=== PATIENT | male | born 1950 | race Caucasian/White ===

== ENCOUNTER 2017-12-26 11:14 | Day surgery (SDC) | payer MEDICARE ==
[2017-12-26] MEDS ORDERED: Propofol* 10 MG/ML 20 ML BTL IV PUSH ONE ×2 (11:47→16:06)
[2017-12-26] MEDS ORDERED: Ondansetron INJ* 2 MG/ML VIAL ONE (11:47)
[2017-12-26] MEDS ORDERED: Mivacurium Chloride* 20 MG/10 ML VIAL IV ONE (11:47)
[2017-12-26] MEDS ORDERED: Dexamethasone IV* 4 MG/ML 1 ML (4 MG) ONE (11:47)
[2017-12-26] MEDS ORDERED: Ketorolac INJ* 30 MG/ML 1 ML VIAL ONE (11:47)
[2017-12-26] MEDS ORDERED: Midazolam* 1 MG/ML 5 ML VIAL (5 MG) ONE (11:47)
[2017-12-26] MEDS ORDERED: Lidocaine 2% PF * 5 ML VIAL ONE ×2 (11:47→12:38)
[2017-12-26] MEDS ORDERED: fentaNYL* 50 MCG/ML 2 ML VIAL (100 MCG VIAL) ONE ×2 (11:47→16:01)
[2017-12-26] MEDS ORDERED: Famotidine IV* 10 MG/ML 2 ML (20 mg) ONE (11:49)
[2017-12-26] MEDS ORDERED: Metoclopramide TAB* 10 MG ONE (11:49)
[2017-12-26] MEDS ORDERED: ceFAZolin 2 GM in 100 MLS NS (*) BAG IVPB ONE (11:50)
[2017-12-26] MEDS ORDERED: Bupivacaine 0.25% SDV* 30 ML ONE (12:34)
[2017-12-26] MEDS ORDERED: ROPIVACAINE 5 MG/ML 30 ML BTL (0.5%) ONE (12:38)
[2017-12-26] MEDS ORDERED: Labetalol IV* 5 MG/ML 20 ML VIAL ONE (13:46)
[2017-12-26] MEDS ORDERED: fentaNYL* 50 MCG/ML 2 ML VIAL (100 MCG VIAL) IV PRN (14:38)
[2017-12-26] MEDS ORDERED: oxyCODONE/Acetamin 5/325 MG* TAB PO PRN (14:38)
[2017-12-26] MEDS ORDERED: Ondansetron INJ* 2 MG/ML VIAL IV PRN (14:38)
[2017-12-26] MEDS ORDERED: Naloxone* 0.4 MG/ML 1 ML VIAL IV PRN (14:38)
[2017-12-26] MEDS ORDERED: Levalbuterol 0.63MG/3ML NEB* UNIT OF USE INH PRN (16:36)
[2017-12-26 18:12] VITALS: BP 130/85
--- NOTE | 2017-12-27 18:33 | OP ---
OPERATIVE REPORT: DATE OF OPERATION: 12/26/17. DATE OF : 48. SURGEON: Jesusita Chase MD. BOWLING ALLEY MECHANIC: MEEK Gill Assistance was needed for the entirety of the case to help with positioning, retraction, and was utilized throughout all portions of the case. ANESTHESIOLOGIST: Dr. Dias. ANESTHESIA: General with interscalene block. PRE-OP DIAGNOSES: Acute left shoulder massive tear. POST-OP DIAGNOSES: Left shoulder massive tear of the supra and infraspinatus tendon, bicipital tendonitis and tendinopathy, mild chondrosis and synovitis. OPERATIVE PROCEDURE: 1. Left shoulder arthroscopy with extensive glenohumeral debridement including chondroplasty. 2. Arthroscopic biceps tenodesis. 3. Subacromial decompression with acromioplasty. 4. Rotator cuff repair of supra and infraspinatus tendon for massive tear in a double-row fashion. INDICATIONS: Pedro Cota is a 67-year-old man, who fell off the step ladder on 11/10/17. He had immediate pain and inability to lift his arm up. He underwent x- ray and MRI and notes improvement in his pain, but he is working on range of motion. He has had persistent pain and although his range of motion is improved he does have significant restretch. Risks and benefits of the surgery were discussed at length and include but not limited to bleeding, infection, damage to nerves, vessel, surrounding structures, wound nonhealing, persistent pain, need for further surgery, scarring, stiffness, incomplete relief of symptoms, risk of anesthesia. COMPLICATIONS: None. ESTIMATED BLOOD LOSS: Minimal. IMPLANTS USED: Three 4.75 Healicoils, 2 Multifixes and 1 Q-Fix anchor. DESCRIPTION OF PROCEDURE: The patient was greeted in the preoperative area by the attending surgeon. Correct extremity was marked. Consent was confirmed. He then underwent interscalene block by the anesthesiologist in the preoperative area. He was then brought back to the operating suite and he was placed in the supine position on the operating room table. He underwent general anesthesia and endotracheal intubation, after which he was placed in the right lateral decubitus position. All bony prominences were padded. He was secured with a pegboard. The right shoulder was draped unsterile with 10 pounds of traction. Next, the left shoulder was prepped and draped in the usual sterile fashion beginning with chlorhexidine soap, scrub, and alcohol wipe , and a final prep of ChloraPrep. After appropriate surgical pause indicating side, site, procedure, and administration of antibiotics, the posterolateral portal was made sharply with 11 blade. The scope was introduced into the joint. The joint was examined. There was significant synovitis at the undersurface of the rotator cuff. The biceps had evidence of tearing, superior labrum tearing as well as biceps tendon itself had a unstable fraying and tearing. The subscap had a small area of less than 5% tearing. The inferior recess was intact but significant synovitis was present. There were grade 1 to 2 changes of the chondral surface in the glenohumeral joint. An anterior portal was made in an outside-in fashion. The shaver was used to debride back the glenohumeral joint, the anterior and posterior labrum. There was evidence of a full-thickness massive tear of the supra and infraspinatus tendon. There was exposed abundant synovitis and bursitis in the subacromial space. The shaver was used to debride back the anterior, posterior, superior labrum, as well as do a chondroplasty. After this was completed, attention was directed to the subacromial space. The scope was placed in the subacromial space. The abundant bursa that was present was debrided back using a shaver. The rotator cuff had torn and split down between the infra and supraspinatus tendon. The split was identified. The edges of the cuff were scarred to the subdeltoid bursa, which was carefully released. The cuff was allowed to mobilize. Attention was directed to the acromion. The left undersurface was then skeletonized using electrocautery device. The undersurface of the acromion demonstrated a moderate-sized sharp spur anterolaterally which was debrided back using a 4.0 oval bur. Once the acromioplasty was completed, attention was directed to the biceps. The biceps was identified with large massive tear. The bicipital groove was then identified and through a separate stab incision the Q-Fix anchor was then placed with excellent purchase. Sutures were then passed through the biceps tendon at the level of the bicipital groove in an interrupted and looped fashion to allow for a locking stitch. Sutures were then tied down using arthroscopic knot tying. The biceps was then tenotomized proximal to that and the stump was debrided back. Attention was directed to the rotator cuff. The greater tuberosity was then prepared in the usual fashion with electrocautery device, the rasp and then the chaparrita to do some gentle decortication. The rotator cuff was then mobilized first and [id number] stitches between supra and infraspinatus tendon were then done in a simple fashion. These were tied down. This helped to mobilize the tendon, so that it was more closely approximated to the tuberosity. Three anchors were placed along the medial row anterior, middle and posterior. These were then passed through the tendon in a horizontal mattress and simple configuration to help restore. Once the sutures were passed, these were then tied down using arthroscopic knot tying technique and the sutures were then passed through a Multifix. The first six strands were passed through an anchor and placed anteriorly in the lateral row and the remaining six strands were passed and placed in the posterolateral based anchor. The final images were obtained. The rotator cuff was found to be approximated quite well. The shoulder was taken through range of motion. Final images were obtained. All fluid and debris were removed from the shoulder. The wounds were copiously irrigated with sterile saline. The portals were closed with 3-0 nylon. Sterile dressings were applied. A Cryo/Cuff as well as an UltraSling were applied. He was then awoken from anesthesia and transferred to the PACU in stable condition. POSTOPERATIVE PLAN: He will be nonweightbearing. He will be in the sling for approximately six weeks. He will be discharged on pain medication. DVT prophylaxis considered but deferred due to no previous personal or family history. I will see the patient back in 10 to 14 days. [id number]/[facility] #: [id number] ARVIN
== END 2017-12-26 16:12 | disposition home or self-care (01) ==
LOC: OREAST 11:14
PROVIDERS: ATTEND Orthopaedic Surgery
DX: S46.012A Strain of muscle(s) and tendon(s) of the rotator cuff of left shoulder, initial encounter (principal); M75.22 Bicipital tendinitis, left shoulder; M65.812 Other synovitis and tenosynovitis, left shoulder; G89.18 Other acute postprocedural pain; W11.XXXA Fall on and from ladder, initial encounter; Y92.79 Other farm location as the place of occurrence of the external cause; M10.9 Gout, unspecified; M54.5 Low back pain; I10 Essential (primary) hypertension; M19.90 Unspecified osteoarthritis, unspecified site; E78.5 Hyperlipidemia, unspecified
CPT/HCPCS: A9270-GY; C1713; C1776; J1100; J1885; J2250; J2405; J2704; J2795; J3010

== ENCOUNTER 2018-03-27 08:41 | Emergency (ER) | payer MEDICARE, BC ==
[2018-03-27 08:59] VITALS: BP 149/89
--- NOTE | 2018-03-27 09:16 | UC ---
UC General HPI - HPI Summary HPI Summary: 67 yo gentleman c/o increased cough x approx 10 days. + yellow-green productive thick mucus. Without shilo hemoptysis reported. Low grade subj fever. No rash. Seen by pcp one week ago, advised viral uri. But sx have worsened since then. + sinus and ear congestion. Hx bronchitis and pneumonia in the past, most recently > 1 yr ago. Sign recent pmh - left shoulder sx 2/2 tear 12/26/17, no new issues reported. - History of Current Complaint Chief Complaint: UCGeneralIllness Stated Complaint: COUGH, CONGESTION Time Seen by Provider: 03/27/18 09:13 Hx Obtained From: Patient Onset/Duration: Lasting Days Pain Intensity: 8 - Allergy/Home Medications Allergies/Adverse Reactions: Allergies Allergy/AdvReac Type Severity Reaction Status Date / Time No Known Allergies Allergy Verified 03/27/18 08:59 Home Medications: Home Medications diPHENhydraMINE PO* [Benadryl PO 25 MG TAB*] 25 mg PO Q6H PRN 03/27/18 [History Confirmed 03/27/18] guaiFENesin [Mucinex] 600 mg PO BID 03/27/18 [History Confirmed 03/27/18] PMH/Surg Hx/FS Hx/Imm Hx Previously Healthy: Yes - see hpi - Surgical History Surgical History: Yes Surgery Procedure, Year, and Place: 09/09/2016 Sciatic nerve back surgery at [facility]. 1978 RT LOWER LEG PUT BACK IN PLACE BUT NO METAL. left should rotator cuff - Social History Alcohol Use: Rare Alcohol Amount: 3-4 DRINKS/YR Substance Use Type: None Smoking Status (MU): Never Smoked Tobacco Have You Smoked in the Last Year: No Household Exposure Type: Cigarettes Review of Systems Constitutional: Fever, Fatigue Skin: Negative Eyes: Other - see hpi ENT: Nasal Discharge, Sinus Congestion Respiratory: Cough Cardiovascular: Negative Gastrointestinal: Negative Genitourinary: Negative Motor: Negative Neurovascular: Negative Musculoskeletal: Negative - no new edema or leg pain Neurological: Negative Psychological: Negative Is Patient Immunocompromised?: No All Other Systems Reviewed And Are Negative: Yes Physical Exam Triage Information Reviewed: Yes Appearance: Well-Nourished - sitting up, able to ambulate, conversing in full sentances Vital Signs: Initial Vital Signs Temp 97.8 F 03/27/18 08:52 Pulse 78 03/27/18 08:52 Resp 17 03/27/18 08:52 BP 149/89 03/27/18 08:52 Pulse Ox 97 03/27/18 08:52 Vital Signs Reviewed: Yes Eye Exam: Normal ENT Exam: Other - cerumen impaction au ENT: Positive: Pharyngeal erythema - mild post pharyng redness, c/w cough, Nasal congestion, Nasal drainage Neck exam: Normal Neck: Positive: Supple, Nontender Respiratory Exam: Other - BS full bilat. + mild exp wheeze. Scattered rhonch L >R, most notable with cough. No rtx. Cardiovascular Exam: Normal Cardiovascular: Positive: RRR, No Murmur, Pulses Normal, Brisk Capillary Refill Abdominal Exam: Normal Abdomen Description: Positive: Nontender Musculoskeletal Exam: Normal - no new BLE edema, + chronic venous insuff changes , lower ext warm to touch. General good cap refill, non-diaphoretic Neurological Exam: Normal - grossly nonfocal Psychological Exam: Normal - conversing easily and appropriately Skin Exam: Normal - no visible or reported rash. Non-diaphoretic. Course/Dx - Course Course Of Treatment: CXR -reviewed xray, reviewed report with Mr. Friedman. Luma x 1, feels better. Has access to a nebulizer at home. He will ask pcp for script for new nebulizer. Rx short prednisone, d/w pt. Rx alb inh (knows how to use) and albuteron ampules. Rx cough med (pt request). Narc talk reviewed. Questions as posed answered to the best of my ability. Cerumen impaction - ears flushed by RN - Differential Dx - Multi-Symptom Provider Diagnoses: Acute bronchitis, suspect early pneumonia. Cerumen impaction Discharge - Sign-Out/Discharge Documenting (check all that apply): Discharge/Admit/Transfer - Discharge Plan Condition: Stable Disposition: HOME Prescriptions: Albuterol 2.5MG/3ML (0.083%)* [Ventolin 2.5 MG/3 ML NEB.JENS*] 2.5 mg INH Q6H PRN #1 box PRN Reason: Wheezing Albuterol HFA INHALER* [Ventolin HFA Inhaler*] 2 puff INH Q4H PRN #1 mdi PRN Reason: Wheezing Ciprofloxacin HCl [Cipro 500 MG TAB] 500 mg PO BID #20 tab Codeine Phosphate/Guaifenesin [Guaifenesin-Codeine Syrup] 10 ml PO Q4H PRN #280 ml MDD 40ml PRN Reason: Cough predniSONE TAB* [Deltasone TAB*] 10 mg PO DAILY #14 tab Patient Education Materials: Cerumen Impaction (ED), Acute Bronchitis (ED), Hypertension (ED) Referrals: Elda Rene [Primary Care Provider] - Additional Instructions: Follow up with your primary care physician, within the next 1-2 weeks for recheck. Seek medical attention (Emergency Department) for worse or new problems in the meantime. Blood pressure today 149/89. - Billing Disposition and Condition Condition: STABLE Disposition: HOME
[2018-03-27] MEDS ORDERED: Albuterol/Ipratropium NEB.SOL* Albuterol 2.5 MG/Ipratropium 0.5 MG 3 ML INH ONE (09:31)
--- NOTE | 2018-03-27 09:57 | RAD ---
HISTORY: Productive cough COMPARISONS: None VIEWS: 4: Frontal dual-energy and lateral views of the chest. FINDINGS: CARDIOMEDIASTINAL SILHOUETTE: The aorta is tortuous. The cardiomediastinal silhouette is otherwise unremarkable. SRAVANTHI: The sravanthi are normal. PLEURA: The costophrenic angles are sharp. No pleural abnormalities are noted. LUNG PARENCHYMA: The lungs are clear. ABDOMEN: The upper abdomen is clear. There is no subphrenic gas. BONES AND SOFT TISSUES: Degenerative changes are noted along the spine. OTHER: None. IMPRESSION: NO ACTIVE CARDIOPULMONARY DISEASE.
== END 2018-03-27 10:45 | disposition home or self-care (01) ==
LOC: UCCORT 08:41
DX: J20.9 Acute bronchitis, unspecified (principal); H61.23 Impacted cerumen, bilateral
CPT/HCPCS: 71046; 99212; A9270-GY; G0463

== ENCOUNTER 2018-12-16 08:26 | Emergency (ER) | payer MEDICARE ==
--- OUTSIDE RECORDS SUMMARY | 2018-12-16 08:35 | XMS REPORT | Continuity of Care Document ---
:1950 External Reference #:[id number] Author Name Marielle Ortiz Care Team Providers Name Role Phone Digiovanlina Elda, [employer] Primary Care Physician Unavailable Payers Date Identification Numbers Payment Provider Subscriber Policy Number: [id number] [facility] Pedro Friedman Group Number: [id number] [id number] PayID: [id number] [place] [address] Advance Directives Description No Information Available Problems Date Description Provider Status Onset: 05/10/2017 Pain in limb Digiovanna, Elda, Active [employer] Onset: 05/10/2017 Low back pain Digiovanna, Elda, Active [employer] Onset: 05/10/2017 Benign prostatic hypertrophy without Digiovanna, Elda, Active outflow obstruction [employer] Onset: 05/10/2017 Gout Digiovanna, Elda, Active [employer] Onset: 01/21/2015 Pure hypercholesterolemia Active Onset: 01/17/2013 Obesity Drew Osuna DO Active Onset: 10/04/2011 Hyperlipidemia Drew Osuna DO Active Onset: 10/04/2011 Benign essential hypertension Drew Osuna DO Active Onset: 12/06/2017 Full thickness rotator cuff tear Jesusita Chase MD Active Onset: 11/23/2018 Strain of rotator cuff capsule Jesusita Chase MD Active Onset: 01/06/2018 Bicipital tenosynovitis Jesusita Chase MD Active Onset: 01/06/2018 Strain of rotator cuff capsule Jesusita Chase MD Active Family History Date Family Member(s) Observation Comments General Heart Disease General Hypertension General Hypercholesterolemia Father Heart Disease Father Hypertension Mother Hypertension Mother Heart Disease First Sister Heart Disease First Sister Hypercholesterolemia Social History Type Date Description Comments Sex Unknown Marital Status Lives With Spouse Occupation Retired Tobacco Use Start: Unknown Never Smoked Cigarettes Smoking Status Reviewed: 12/08/18 Never Smoked Cigarettes ETOH Use Occasionally consumes alcohol Tobacco Use Start: Unknown Patient has never smoked Recreational Drug Use Denies Drug Use Exercise Type/Frequency Exercises regularly Allergies, Adverse Reactions, Alerts Description No Known Drug Allergies Medications Medication Date Status Form Strength Qnty SIG Indications Ordering Provider Sildenafil 11/11 Active Tablets 100mg 6tabs 1/2-1 by R37 Digiovann Citrate mouth as a, needed Elda, [employer] Lisinopril 10/14 Active Tablets 20mg 90tab 1 by mouth I10 Digiovann s every day a, Elda, [employer] Allopurinol 03/30 Active Tablets 300mg 90tab 1 by mouth M10.9 Digiovann s daily a, Elda, [employer] Colcrys 09/26 Active Tablets 0.6mg 30tab 1 by mouth M79.671 Digiovann s twice a day a, until pain Elda, resolves or SAF[employer]Y [employer]ION if develops diarrhea, then 1 by mouth daily for additional 5 days Ibuprofen 200 00/00 Active Tablets 200mg 400-600mg Unknown /0000 every 6 hours as needed for pain. Ambien 01/10 Hx Tablets 5mg 10tab take one by zenaida s mouth Yaseen, - before bed 06/05 as needed for sleep. Oxycodone-Acetam 12/26 Hx Tablets 5-325mg 40tab 1-2 tabs by Zaneb inophen s mouth every Yaseen, - 4-6 hours 06/05 as needed for pain Budesonide 05/10 Hx Suspension 32mcg/Act 25.29 1 spray J30.9 units each a, - nostril Elda, 06/04 daily, rinse mouth after use Naproxen 02/16 Hx Tablets 500mg 180ta take one M54.5 iovan bs tablet by a, - mouth twice Elda, 10/31 a day for 2 weeks then as needed with food Cyclobenzaprine 02/16 Hx Tablets 10mg 30tab take 1 M54.5 Digiovann HCL s tablet by a, - mouth every Elda, 10/31 8 hours as needed for pain Atorvastatin 10/14 Hx Tablets 10mg 90tab 1 by mouth E78.5 Digiovann Calcium s three times a, - a week Elda, 06/04 Gabapentin 05/06 Hx Capsules 300mg 90cap 1 by mouth M79.606 Digiovann /2016 s every night a, - at bedtime Elda, 06/05 Tamsulosin HCL Hx Capsules 0.4mg 90cap 1 by mouth N40.0 Digiovann /0000 s every day a, - Elda, 06/04 Medications Administered in Office Medication Date Status Form Strength Qnty SIG Indications Ordering Provider Celestone 3 mg Administered Injection Henrik Coronado and 3mg 018 MD Marcos Celestone 3 mg Administered Injection Henrik Coronado and 3mg 018 MD Marcos Immunizations Description No Information Available Vital Signs Date Vital Result Comment 12/08/2018 11:02am Height 66 inches 5'6" Weight 250.00 lb BP Systolic 130 mmHg BP Diastolic 80 mmHg Respiratory Rate 20 /min Pain Level 3 BMI (Body Mass Index) 40.3 kg/m2 11/23/2018 1:59pm Height 66 inches 5'6" Weight 250.00 lb Heart Rate 64 /min Body Temperature 97.4 F Pain Level 5 O2 % BldC Oximetry 97 % BMI (Body Mass Index) 40.3 kg/m2 07/25/2018 7:56am Height 66 inches 5'6" Heart Rate 68 /min BP Systolic Sitting 148 mmHg BP Diastolic Sitting 98 mmHg Respiratory Rate 20 /min Body Temperature 97.6 F Pain Level 1 06/08/2018 9:12am Height 66 inches 5'6" Weight 250.00 lb Heart Rate 60 /min BP Systolic Sitting 124 mmHg BP Diastolic Sitting 84 mmHg Respiratory Rate 18 /min Pain Level 5 BMI (Body Mass Index) 40.3 kg/m2 05/23/2018 9:08am Heart Rate 68 /min BP Systolic 150 mmHg BP Diastolic 100 mmHg Body Temperature 97.6 F 03/17/2018 8:46am Height 66 inches 5'6" Weight 252.00 lb BP Systolic 140 mmHg BP Diastolic 86 mmHg Respiratory Rate 20 /min Pain Level 0 BMI (Body Mass Index) 40.7 kg/m2 02/03/2018 8:46am Height 66 inches 5'6" Weight 252.00 lb Heart Rate 80 /min BP Systolic Sitting 106 mmHg BP Diastolic Sitting 60 mmHg Respiratory Rate 16 /min Pain Level 0 BMI (Body Mass Index) 40.7 kg/m2 01/06/2018 8:00am Height 66 inches 5'6" Weight 252.00 lb BP Systolic 126 mmHg BP Diastolic 74 mmHg Respiratory Rate 18 /min Body Temperature 97.3 F Pain Level 0 BMI (Body Mass Index) 40.7 kg/m2 12/06/2017 9:27am Height 66 inches 5'6" Weight 252.00 lb per pt Heart Rate 74 /min BP Systolic 128 mmHg BP Diastolic 80 mmHg Respiratory Rate 16 /min Body Temperature 97.7 F Pain Level 5 BMI (Body Mass Index) 40.7 kg/m2 12/02/2017 8:42am Height 66 inches 5'6" Weight 252.00 lb Heart Rate 68 /min BP Systolic Sitting 124 mmHg BP Diastolic Sitting 68 mmHg Respiratory Rate 16 /min Pain Level 3 BMI (Body Mass Index) 40.7 kg/m2 11/25/2017 9:48am Height 66 inches 5'6" Weight 252.12 lb Heart Rate 78 /min BP Systolic Sitting 144 mmHg BP Diastolic Sitting 90 mmHg Respiratory Rate 18 /min Pain Level 5 BMI (Body Mass Index) 40.7 kg/m2 Results Test Date Facility Test Result H/L Range Note Basic Metabolic 12/06/2017 [facility] Sodium 136 mmol/L N 133- 145 Panel [address] [place] [address] [phone] Potassium 4.4 mmol/L N 3.5-5.0 Chloride 102 mmol/L N 101-111 Co2 Carbon Dioxide 28 mmol/L N 22-32 Anion Gap 6 mmol/L N 2-11 Glucose 89 mg/dL N 70-100 Blood Urea Nitrogen 17 mg/dL N 6-24 Creatinine 1.06 mg/dL N 0.67-1.17 BUN/Creatinine Ratio 16.0 N 8-20 Calcium 9.2 mg/dL N 8.6-10.3 Egfr Non- 69.5 >60 Egfr 89.4 >60 1 CBC Auto Diff 12/06/2017 [facility] White Blood 9.5 10^3/uL N 3.5-10.[address] [place] [address] [phone] Red Blood Count 5.22 10^6/uL N 4.0-5.4 Hemoglobin 15.9 g/dL N 14.0-18.0 Hematocrit 47 % N 42-52 Mean Corpuscular Volume 90 fL N 80-94 Mean Corpuscular Hemoglobin 31 pg N 27-31 Mean Corpuscular HGB Conc 34 g/dL N 31-36 Red Cell Distribution Width 13 % N 10.5-15 Platelet Count 177 10^3/uL N 150-450 Mean Platelet Volume 10 um3 N 7.4-10.4 Abs Neutrophils 6.6 10^3/uL N 1.5-7.7 Abs Lymphocytes 1.9 10^3/uL N 1.0-4.8 Abs Monocytes 0.8 10^3/uL N 0-0.8 Abs Eosinophils 0.1 10^3/uL N 0-0.6 Abs Basophils 0 10^3/uL N 0-0.2 Abs Nucleated RBC 0 10^3/uL Granulocyte % 69.6 % N 38-83 Lymphocyte % 19.7 % Low 25-47 Monocyte % 8.9 % N 1-9 Eosinophil % 1.4 % N 0-6 Basophil % 0.4 % N 0-2 Nucleated Red Blood Cells % 0 1 Because ethnic data is not always readily available, this report includes an eGFR for both -Americans and non- Americans. The National Kidney Disease Education Program (NKDEP) does not endorse the use of the MDRD equation for patients that are not between the ages of 18 and 70, are , have extremes of body size, muscle mass, or nutritional status, or are non- or non-. According to the National Kidney Foundation, irrespective of diagnosis, the stage of the disease is based on the level of kidney function: Stage Description GFR(mL/min/1.73 m(2)) 1 Kidney damage with normal or decreased GFR 90 2 Kidney damage with mild decrease in GFR 60-89 3 Moderate decrease in GFR 30-59 4 Severe decrease in GFR 15-29 5 Kidney failure <15 (or dialysis) Procedures Date Code Description Status 06/08/2018 Inject/Drain Joint/Bursa Major W/O US Completed 12/26/2017 67925 Arthroscopy Biceps Tenodesis Completed 12/26/2017 26949 Arthroscopy Biceps Tenodesis Completed 12/26/2017 29840 Arthroscopy Shoulder,W/Rotator Cuff Repair Completed 12/26/2017 61410 Arthroscopy Shoulder,W/Rotator Cuff Repair Completed 12/26/2017 32708 Arthroscopy,Shoulder Decompression Of Subacromial Space Completed W/Acromio 12/26/2017 28879 Arthroscopy,Shoulder Decompression Of Subacromial Space Completed W/Acromio 12/26/2017 11367 Arthroscopy Shoulder Debridement Extensive Completed 12/26/2017 65928 Arthroscopy Shoulder Debridement Extensive Completed 11/25/2017 Inject/Drain Joint/Bursa Major W/O US Completed Encounters Type Date Location Provider Dx Diagnosis Office Visit 11/23/2018 Orthopedic Jesusita Chase MD S46.012A Strain of 2:45p [facility] [place]/tend the rotator cuff of left shoulder, init M75.22 Bicipital tendinitis, left shoulder Office Visit 07/25/2018 8:00a Orthopedic Jesusita Chase, S46.012A Strain of Services Of MD [place]/tend the [facility] rotator cuff of left shoulder, init M75.22 Bicipital tendinitis, left shoulder S46.012D Strain of [place]/tend the rotator cuff of left shoulder, subs Office Visit 06/08/2018 Orthopedic Henrik Coronado M17.11 Unilateral primary 9:30a [facility] Bianca Rodríguez MD osteoarthritis, right AT [place] knee S82.101D Unsp fx upper end of r tibia, subs for clos fx w routn heal Office Visit 05/23/2018 9:15a Orthopedic Jesusita Chase, S46.012A Strain of Services Of MD [place]/tend the [facility] 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 rotator cuff of left shoulder, init Office Visit 12/02/2017 8:45a Orthopedic Henrik Coronado M75.122 Complete Services Of Bianca Rodríugez MD rotatr-cuff AT [place] tear/ruptr of left shoulder, not trauma Office Visit 11/25/2017 10:15a Orthopedic Henrik Coronado S43.422A Sprain of left [facility] Of Bianca Rodríguez MD rotator cuff AT [place] capsule, initial encounter W11.xxxA Fall on and from ladder, initial encounter Plan of Treatment Future Appointment(s):08/09/2019 8:00 am - Jesusita Chase MD at [facility] [place]
--- OUTSIDE RECORDS SUMMARY | 2018-12-16 08:36 | XMS REPORT | Continuity of Care Document ---
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 Payers Type Date Identification Numbers Payment Provider Subscriber Policy Number: [id number] [facility] Pedro Friedman PayID: [id number] [place] [address] Advance Directives Description No Information Available Problems Date Description Provider Status Onset: 10/04/2011 Hyperlipidemia Drew Osuna DO Active Onset: 10/04/2011 Benign essential hypertension Drew Osuna DO Active Onset: 05/10/2017 Gout Elda Rene [employer] Active Onset: 05/10/2017 Benign prostatic hypertrophy Elda Rene [employer] Active without outflow obstruction Onset: 05/10/2017 Low back pain Elda Rene [employer] Active Onset: 05/10/2017 Pain in limb Elda Rene [employer] Active Onset: 12/16/2017 Psychosexual dysfunction Elda Rene, [employer] Active Onset: 09/12/2018 Aneurysm of thoracic aorta Elda Rene [employer] Active Family History Date Family Member(s) Problem(s) Comments General [place] son, age 31 Social History Type Date Description Comments Sex Unknown Education Highest level completed, 12th grade Marital Status Lives With Spouse Occupation Retired - [employer] H[employer]ies [employer]. ETOH Use Occasionally consumes alcohol Tobacco Use Start: Unknown Patient has never smoked Smoking Status Reviewed: 11/21/18 Patient has never smoked Exercise exercises regularly, Type/Frequency With Hobbies Allergies, Adverse Reactions, Alerts Description No Known Drug Allergies Medications Medication Date Status Form Strength Qnty SIG Indications Ordering Provider Oswaldo Active Tablets ER 25mg 1 by mouth N40.1 Yomi, 018 24HR every day Jeremie Dewitt Active Capsules 0.6mg 30caps 1 by mouth M79.671 Digiovanna 018 twice a day , until pain Elda, resolves or [employer] WRITER if develops diarrhea, then 1 by mouth daily for additional 5 days M10.9 Sildenafil 05/16/2018 Active Tablets 20mg 30tabs 2 -3 by R37 Digiovanna , Citrate mouth as Elda, [employer] needed 30-60' prior to sexual activity will purchase out of pocket Budesonide 05/10/2017 Active Suspension 32mcg/ 25.29ml 1 spray J30. Digiovanna, Act each 9 Elda, [employer] nostril daily, rinse mouth after use Naproxen 02/16/2017 Active Tablets 500mg 180tabs take one M54. Digiovanna, tablet by 5 Elda, [employer] mouth twice a day for 2 weeks then as needed with food Lisinopril 10/14/2016 Active Tablets 20mg 90tabs 1 by I10 Digiovanna, mouth Elda, [employer]ITER every day Allopurinol 03/30/2016 Active Tablets 300mg 90tabs 1 by M10. Digiovanna , mouth 9 Elda, [employer]ITER daily Sildenafil 11/11/2017 - Hx Tablets 100mg 6tabs 1/2-1 by R37 Digiovanna, Citrate 05/16/2018 mouth as Elda, [employer]ITER needed Cyclobenzaprine 02/16/2017 - Hx Tablets 10mg 30tabs take 1 M54. Digiovanna, HCL 09/12/2018 tablet by 5 Elda, [employer] mouth every 8 hours as needed for pain Prednisone 02/16/2017 - Hx Tablets 20mg 10tabs 2x/day by M54. Digiovanna, 02/21/2017 mouth for 5 Elda, [employer] 5 days Benzonatate 12/15/2016 - Hx Capsules 200mg 30caps 1 by Mica, 05/03/2017 mouth Danya, MD three times a day as needed Amoxicillin/Clavu 12/15/2016 - Hx Tablets 875-12 20tabs 1 by J01. Mica, lanate Potassium 12/25/2016 5mg mouth 90 MD Danya twice a day Atorvastatin 10/14/2016 - Hx Tablets 10mg 90tabs 1 by E78. Digiovanna, Calcium 12/16/2017 mouth 5 Elda, [employer] three times a week Gabapentin 05/06/2016 - Hx Capsules 300mg 90caps 1 by M79. Digiovanna, 11/10/2017 mouth 606 Elda, [employer]ITER every night at bedtime as needed M54.5 Lisinopril 03/30/2016 - Hx Tablets 10mg 90tabs 1 by mouth I10 Enrrique, 10/14/2016 every day Drew DO Allopurinol 01/27/2016 - Hx Tablets 100mg 90tabs 1 by mouth M10.9 Osuna , 03/30/2016 every day Drew, DO Prednisone 12/30/2015 - Hx Tablets 20mg 10tabs 2 by mouth Osuna, 01/04/2016 daily x 5 Drew, days DO Benzonatate 12/30/2015 - Hx Capsules 200mg 30caps 1 by mouth Enrrique, 01/09/2016 three times Drew, a day as DO needed cough Hydrochlorothiazide 12/25/2015 - Hx Tablets 25mg 90tabs take 1 Osuna, 03/30/2016 tablet by Drew, mouth every DO morning Colcrys 09/26/2015 - Hx Tablets 0.6mg 30tabs 1 by mouth M79.6 Digiovanna 05/16/2018 twice a day 71 , until pain Elda, resolves or [employer] WRITER if develops diarrhea, then 1 by mouth daily for additional 5 days M10.9 Diazepam 09/13/2015 - Hx Tablets 5mg 10tabs Take 1 tablet Unknown 11/06/2015 (5 mg total) by mouth every 8 (eight) hours as needed for anxiety Max Daily Amount: 15 mg Milk Of 09/13/2015 - Hx Suspension 1200mg 360units Take 30 mL by Unknown Magnesia 11/06/2015 /15ML mouth daily as needed for constipation Hydrocodone-Rush 09/13/2015 - Hx Tablets 7.5-32 60tabs Take 1-2 Unknown taminophen 11/06/2015 5mg tablets by mouth every 4 (four) hours as needed Max Daily Amount: 8 tablets Cheratussin ac 08/27/2015 - Hx Syrup 100-10 118ml 5 milliliters Osuna, 09/05/2015 mg/5ML by mouth every Drew, night at DO bedtime Azithromycin 08/25/2015 - Hx Tablets 500mg 7tabs 1 po daily Osuna, 09/01/2015 Drew, DO Prednisone 08/12/2015 - Hx Tablets 20mg 10tabs 2 by mouth with Osuna, 08/17/2015 food once a day Drew, DO Tizanidine HCL 08/08/2015 - Hx Tablets 4mg 30tabs 1 by mouth qhs M48 Osuna, 09/05/2015 as needed .06 Drew, muscle spasm DO Gabapentin 07/29/2015 - Hx Capsules 300mg 90caps 1 tabs by mouth M48 Osuna, 09/05/2015 QHS .06 Drew, DO Prednisone 06/26/2015 - Hx Tablets 10mg 21tabs 6 pills daily x 724 Osuna, 07/03/2015 1 day, the 5 .02 Drew, pills daily x 1 DO day, 4 po daily x 1 day, 3 po daily x 1 day, 2 po daily x1, 1 po daily x 1 day Gabapentin 06/26/2015 - Hx Capsules 100mg 60caps 1 by mouth qhs 724 Osuna, 07/29/2015 x 3 days, then .02 Drew, 2 po qhs every DO night at bedtime Prednisone 04/16/2015 - Hx Tablets 10mg 42tabs 6 pills daily x 724 Osuna, 04/28/2015 2 days, the 5 .02 Drew, pills daily x 2 DO days, 4 po daily x 2 days, 3 po daily x 2 days, 2 po daily x2, 1 po until gone Prednisone 03/31/2015 - Hx Tablets 20mg 10tabs 2 by mouth 724 Osuna, 04/05/2015 daily x 5 days .3 Drew, DO Atorvastatin 03/13/2015 - Hx Tablets 10mg 90tabs 1 by mouth Osuna, Calcium 10/14/2016 every day Drew, DO Meloxicam 01/23/2015 - Hx Tablets 15mg 30tabs 1 tab by mouth 724 Osuna, 09/05/2015 daily as needed .3 Drew, pain with food DO M48.06 Viagra 07/26/2014 - Hx Tablets 100mg 6tabs 1/2-1 by R37 Anju, 11/11/2017 mouth as 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 Pravastatin 07/26/2014 - Hx Tablets 80mg 90tabs 1 by mouth Osuna, Sodium 03/13/2015 every Drew, DO night at bedtime Chlorthalidone 04/11/2014 - Hx Tablets 25mg 90tabs 1 by mouth Osuna, 12/25/2015 every day Drew, DO Ibuprofen 09/20/2011 - Hx Tablets 600mg 90tabs take 1 Osuna, 01/23/2015 pill up to Drew, DO three times a day with food as needed for pain Hydrocodone-Aceta - Hx Tablets 5-325mg 1 every 6 Unknown minophen 11/06/2015 hours as needed Tamsulosin HCL - Hx Capsules 0.4mg 90caps 1 by mouth N40.0 Digiovanna, 05/16/2018 every day 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 N40.1 Prednisone - 09/17/2018 Hx Tablets 10mg 1 qid for 3 day, 1 po Unknown tid for 3 day 1 po bid for 3 day, 1 po po for 3 day Immunizations CPT Code Status Date Vaccine Reaction Lot # [id number] Given 12/09/2017 Afluria Or Fluvirin Flu Vac Intramuscular 89619 Given 05/10/2017 Pneumococcal 23 Immunization Adult Or [id number] Immunosuppressed Patient 90201 Given 05/06/2016 Prevnar 13 Pneumococal Conjugate Vaccine [id number] 25629 Given 11/27/2014 Zoster (Zostavax) 06333 Given 08/06/2013 Tdap (Adacel) Ages 7 And Above Only [id number] Refused 11/21/2018 Flu Vaccine NOS Pt says he has not yet gotten a flu shot. VALERIA ERAZO 11/21/18 [id number] Refused 09/12/2018 Flu Vaccine NOS As of 09/12/18--pt hasn't gotten his flu shot yet-says he will get it soon. 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 BMI (Body Mass Index) 40.4 kg/m2 09/12/2018 10:20am Body Temperature 97.9 F tympanic Weight 251.56 lb Heart Rate 84 /min BP Systolic 130 mmHg BP Diastolic 80 mmHg Respiratory Rate 18 /min Height 66 inches 5'6" 05/16/18 ,TUBE PULLER O2 % BldC Oximetry 94 % Room Air BMI (Body Mass Index) 40.6 kg/m2 06/06/2018 8:19am Weight 258.00 lb Heart Rate 66 /min BP Systolic 130 mmHg BP Diastolic 84 mmHg Respiratory Rate 18 /min Height 66 inches 5'6" 05/16/18 SA,TUBE PULLER BMI (Body Mass Index) 41.6 kg/m2 05/16/2018 9:03am Weight 254.00 lb Heart Rate 80 /min BP Systolic 130 mmHg BP Diastolic 80 mmHg Respiratory Rate 18 /min Height 66 inches 5'6" 05/16/18 ,TUBE PULLER BMI (Body Mass Index) 41.0 kg/m2 03/21/2018 10:24am Body Temperature 98.2 F tympanic Weight 256.00 lb Heart Rate 88 /min BP Systolic 140 mmHg BP Diastolic 90 mmHg Respiratory Rate 20 /min Height 66 inches 5'6" O2 % BldC Oximetry 98 % Room Air BMI (Body Mass Index) 41.3 kg/m2 12/16/2017 1:13pm Weight 251.00 lb Heart Rate 80 /min BP Systolic 128 mmHg BP Diastolic 82 mmHg Respiratory Rate 16 /min Height 66 inches 5'6" BMI (Body Mass Index) 40.5 kg/m2 11/21/2017 9:11am Weight 254.00 lb Heart Rate 78 /min BP Systolic 148 mmHg BP Diastolic 92 mmHg Respiratory Rate 16 /min 11/11/2017 11:10am Weight 253.00 lb Heart Rate 76 /min BP Systolic 128 mmHg BP Diastolic 80 mmHg Respiratory Rate 16 /min Height 66 inches 5'6" BMI (Body Mass Index) 40.8 kg/m2 05/10/2017 9:02am Weight 248.00 lb Heart Rate 70 /min BP Systolic 128 mmHg BP Diastolic 74 mmHg Respiratory Rate 18 /min Height 66 inches 5'6" BMI (Body Mass Index) 40.0 kg/m2 04/04/2017 9:33am Body Temperature 97.6 F Weight 252.00 lb Heart Rate 68 /min BP Systolic 122 mmHg BP Diastolic 72 mmHg Respiratory Rate 18 /min Height 66 inches 5'6" BMI (Body Mass Index) 40.7 kg/m2 02/16/2017 8:04am Weight 246.00 lb Heart Rate 60 /min BP Systolic 124 mmHg BP Diastolic 70 mmHg Respiratory Rate 18 /min Height 66 inches 5'6" BMI (Body Mass Index) 39.7 kg/m2 12/15/2016 8:26am Body Temperature 97.0 F Weight 242.00 lb Heart Rate 68 /min BP Systolic 120 mmHg BP Diastolic 70 mmHg Respiratory Rate 18 /min Height 66 inches 5'6" O2 % BldC Oximetry 98 % Ra BMI (Body Mass Index) 39.1 kg/m2 2016 8:37am Weight 244.00 lb Heart Rate 70 /min BP Systolic 120 mmHg BP Diastolic 80 mmHg BP Systolic Lying Down 120 mmHg BP Diastolic Lying Down 84 mmHg BP Systolic Sitting 126 mmHg BP Diastolic Sitting 80 mmHg BP Systolic Standing 120 mmHg BP Diastolic Standing 80 mmHg Respiratory Rate 18 /min 10/14/2016 8:16am Weight 246.00 lb Heart Rate 70 /min BP Systolic 140 mmHg BP Diastolic 80 mmHg Respiratory Rate 18 /min Height 66 inches 5'6" BMI (Body Mass Index) 39.7 kg/m2 05/06/2016 8:29am Weight 245.00 lb Heart Rate 68 /min BP Systolic 120 mmHg BP Diastolic 80 mmHg Respiratory Rate 18 /min Height 66 inches 5'6" BMI (Body Mass Index) 39.5 kg/m2 03/30/2016 8:27am Weight 245.00 lb Heart Rate 76 /min BP Systolic 166 mmHg BP Diastolic 100 mmHg BP Systolic Recheck 152 mmHg BP Diastolic Recheck 106 mmHg Respiratory Rate 20 /min Height 66 inches 5'6" BMI (Body Mass Index) 39.5 kg/m2 01/27/2016 9:53am Weight 250.00 lb Heart Rate 72 /min BP Systolic 138 mmHg No Am Meds Yet BP Diastolic 84 mmHg No Am Meds Yet BP Systolic Recheck 148 mmHg BP Diastolic Recheck 94 mmHg Respiratory Rate 18 /min Height 66 inches 5'6" BMI (Body Mass Index) 40.3 kg/m2 12/30/2015 9:25am Body Temperature 97.4 F Weight 250.00 lb Heart Rate 68 /min BP Systolic 136 mmHg BP Diastolic 76 mmHg Respiratory Rate 18 /min Height 66 inches 5'6" O2 % BldC Oximetry 97 % BMI (Body Mass Index) 40.3 kg/m2 11/13/2015 2:44pm Weight 240.00 lb Heart Rate 94 /min BP Systolic 131 mmHg BP Diastolic 87 mmHg Height 66 inches BMI (Body Mass Index) 38.7 kg/m2 11/06/2015 8:38am Weight 250.00 lb Heart Rate 74 /min BP Systolic 136 mmHg BP Diastolic 86 mmHg Respiratory Rate 18 /min Height 66 inches 5'6" BMI (Body Mass Index) 40.3 kg/m2 10/02/2015 9:52am Weight 245.00 lb Heart Rate 98 /min BP Systolic 133 mmHg BP Diastolic 89 mmHg Height 66 inches BMI (Body Mass Index) 39.5 kg/m2 09/26/2015 10:45am Body Temperature 98.1 F Weight 246.00 lb PRPT Heart Rate 72 /min BP Systolic 140 mmHg BP Diastolic 70 mmHg Respiratory Rate 18 /min Height 65.5 inches 5'5.50" (07/2015) BMI (Body Mass Index) 40.3 kg/m2 09/13/2015 7:33am Body Temperature 97.4 F Heart Rate 71 /min BP Systolic 123 mmHg BP Diastolic 81 mmHg Respiratory Rate 18 /min O2 % BldC Oximetry 96 % 09/09/2015 7:50am Weight 244.00 lb Height 66.50 inches BMI (Body Mass Index) 38.8 kg/m2 09/05/2015 1:05pm Weight 248.00 lb Heart Rate 92 /min BP Systolic 160 mmHg BP Diastolic 106 mmHg BP Systolic Recheck 150 mmHg BP Diastolic Recheck 90 mmHg Respiratory Rate 21 /min Height 65.5 inches 5'5.50" (07/2015) BMI (Body Mass Index) 40.6 kg/m2 08/25/2015 3:36pm Body Temperature 98.3 F Weight 242.00 lb Heart Rate 94 /min BP Systolic 148 mmHg BP Diastolic 88 mmHg Respiratory Rate 20 /min Height 65.5 inches 5'5.50" (07/2015) O2 % BldC Oximetry 95 % BMI (Body Mass Index) 39.7 kg/m2 08/08/2015 9:09am Weight 246.00 lb Heart Rate 86 /min BP Systolic 168 mmHg BP Diastolic 90 mmHg BP Systolic Recheck 142 mmHg BP Diastolic Recheck 92 mmHg Respiratory Rate 21 /min Height 65.5 inches 5'5.50" (07/2015) BMI (Body Mass Index) 40.3 kg/m2 07/29/2015 9:19am Weight 249.00 lb Heart Rate 70 /min BP Systolic 132 mmHg BP Diastolic 76 mmHg Respiratory Rate 18 /min Height 66 inches 5'6" BMI (Body Mass Index) 40.2 kg/m2 06/26/2015 9:27am Weight 248.00 lb Heart Rate 70 /min BP Systolic 136 mmHg BP Diastolic 74 mmHg Respiratory Rate 18 /min Height 66 inches 5'6" BMI (Body Mass Index) 40.0 kg/m2 06/12/2015 9:44am Weight 250.00 lb Heart Rate 70 /min BP Systolic 148 mmHg BP Diastolic 84 mmHg Respiratory Rate 18 /min Height 66 inches 5'6" O2 % BldC Oximetry 96 % BMI (Body Mass Index) 40.3 kg/m2 04/16/2015 9:47am Weight 250.00 lb Heart Rate 68 /min BP Systolic 148 mmHg BP Diastolic 74 mmHg Respiratory Rate 18 /min Height 66 inches 5'6" BMI (Body Mass Index) 40.3 kg/m2 03/31/2015 9:44am Weight 257.00 lb Heart Rate 70 /min BP Systolic 138 mmHg BP Diastolic 72 mmHg Respiratory Rate 18 /min Height 66 inches 5'6" BMI (Body Mass Index) 41.5 kg/m2 01/23/2015 8:09am Weight 252.00 lb Heart Rate 72 /min BP Systolic 158 mmHg BP Diastolic 90 mmHg BP Systolic Recheck 144 mmHg BP Diastolic Recheck 88 mmHg Respiratory Rate 18 /min 09/05/2014 1:02pm Body Temperature 96.9 F Weight 247.00 lb Heart Rate 72 /min BP Systolic 132 mmHg BP Diastolic 80 mmHg Respiratory Rate 18 /min O2 % BldC Oximetry 95 % Ra 08/20/2014 10:02am Body Temperature 97.8 F Weight 248.00 lb Heart Rate 88 /min BP Systolic 148 mmHg BP Diastolic 82 mmHg Respiratory Rate 18 /min Height 65.5 inches 5'5.50" O2 % BldC Oximetry 97 % 07/26/2014 8:01am BP Systolic 126 mmHg BP Diastolic 84 mmHg 07/26/2014 8:01am Weight 245.00 lb Heart Rate 70 /min BP Systolic 144 mmHg BP Diastolic 88 mmHg Respiratory Rate 18 /min Height 65.5 inches 5'5.50" 04/29/2014 10:06am BP Systolic 130 mmHg BP Diastolic 90 mmHg 04/29/2014 10:06am Body Temperature 97.5 F Weight 246.12 lb Heart Rate 78 /min BP Systolic 142 mmHg BP Diastolic 106 mmHg Respiratory Rate 20 /min Height 65.5 inches 5'5.50" O2 % BldC Oximetry 95 % 04/11/2014 8:56am BP Systolic 144 mmHg BP Diastolic 98 mmHg 04/11/2014 8:56am Weight 243.00 lb Heart Rate 70 /min BP Systolic 140 mmHg BP Diastolic 90 mmHg Respiratory Rate 18 /min Height 65.5 inches 5'5.50" 08/27/2013 2:51pm Weight 245.00 lb Heart Rate 88 /min BP Systolic 142 mmHg BP Diastolic 88 mmHg Respiratory Rate 19 /min 08/20/2013 9:10am Body Temperature 97.5 F Weight 242.00 lb Heart Rate 86 /min BP Systolic 144 mmHg BP Diastolic 104 mmHg Respiratory Rate 20 /min O2 % BldC Oximetry 95 % 08/06/2013 10:16am Body Temperature 97.7 F Weight 243.00 lb Heart Rate 82 /min BP Systolic 142 mmHg BP Diastolic 82 mmHg Respiratory Rate 18 /min O2 % BldC Oximetry 96 % 07/23/2013 10:34am Body Temperature 96.7 F Weight 244.00 lb Heart Rate 90 /min BP Systolic 150 mmHg off BP med BP Diastolic 108 mmHg off BP med Respiratory Rate 20 /min 01/17/2013 8:21am Body Temperature 96.6 F Weight 239.00 lb Heart Rate 70 /min BP Systolic 146 mmHg BP Diastolic 88 mmHg Respiratory Rate 18 /min 06/14/2012 10:38am Weight 233.19 lb Heart Rate 70 /min BP Systolic 134 mmHg BP Diastolic 82 mmHg Respiratory Rate 19 /min Height 66 inches 5'6" 02/16/2012 11:13am Body Temperature 97.7 F Weight 236.06 lb Heart Rate 73 /min BP Systolic 132 mmHg BP Diastolic 84 mmHg Respiratory Rate 19 /min Height 66.5 inches 5'6.50" O2 % BldC Oximetry 93 % 12/03/2011 8:22am Weight 236.00 lb Heart Rate 74 /min BP Systolic 130 mmHg LEFT Arm 122/80 RIGHT Arm BP Diastolic 80 mmHg LEFT Arm 122/80 RIGHT Arm Respiratory Rate 18 /min Height 66.5 inches 5'6.50" 10/18/2011 8:29am Weight 238.00 lb Up 2# Heart Rate 72 /min BP Systolic 148 mmHg L/LG BP Diastolic 92 mmHg L/LG Respiratory Rate 19 /min Height 66.5 inches 5'6.50" 10/04/2011 9:06am Weight 236.56 lb Heart Rate 78 /min BP Systolic 150 mmHg BP Diastolic 102 mmHg Respiratory Rate 17 /min Height 66.5 inches 5'6.50" 09/20/2011 4:17pm Weight 266.25 lb Heart Rate 80 /min BP Systolic 132 mmHg BP Diastolic 80 mmHg Respiratory Rate 18 /min Height 66.5 inches 5'6.50" 03/22/2011 8:21am Weight 238.00 lb Heart Rate 72 /min BP Systolic 128 mmHg BP Diastolic 82 mmHg Respiratory Rate 18 /min Height 66.5 inches 5'6.50" 12/22/2010 8:49am Weight 230.00 lb Heart Rate 80 /min BP Systolic 140 mmHg BP Diastolic 92 mmHg Respiratory Rate 18 /min 11/10/2010 8:35am Weight 234.00 lb Heart Rate 72 /min BP Systolic 134 mmHg BP Diastolic 90 mmHg Respiratory Rate 20 /min 10/13/2010 9:03am Heart Rate 80 /min BP Systolic 148 mmHg BP Diastolic 90 mmHg Height 67 inches 5'7" Results Test Date Facility Test Result H/L Range Note Lipid Treatment 11/14/2018 [facility] Cholesterol 210 mg/dL High 50-199 Triglycerides 250 mg/dL High 30-200 HDL 37 mg/dL 29-71 1 Chol/ HDL Ratio 5.6 ratio 4.0-6.7 VLDL 50 mg/dL High 2-29 LDL (Calc) 123 mg/dL High 20-99 2 Alt 20 U/L 3-42 Ast 18 U/L 8-42 Basic (BMP) 11/14/2018 [facility] Sodium 139 mmol/L 135-146 3 Potassium 5.0 mmol/L 3.5-5.2 Chloride# 102 mmol/L 97-110 4 Carbon Dioxide 30 mmol/L 24-34 Glucose 86 mg/dL 70-105 BUN 16 mg/dL 6-26 Creatinine 1.0 mg/dL 0.5-1.4 Calcium 9.5 mg/dL 8.5-10.2 Non [facility] Egfr >60 >60 5 [facility] Eg[facility] >60 >60 6 Anion Gap 7 mmol/L 5-15 7 CBC with Auto Diff-fcmg 11/14/2018 [facility] WBC 7.6 K/uL 4.1-11.0 RBC 5.35 M/uL 4.60-6.10 Hemoglobin 16.0 gm/dL 13.5-18.0 Hematocrit 47.9 % 41.0-53.0 MCV 89.7 fL 80.0-97.0 MCH 29.9 pg 27.0-32.0 MCHC 33.4 g/dL 32.0-36.0 RDW 13.0 % 11.5-14.5 PLT Count 176 K/ul 140-400 MPV 10.5 FL 7.1-10.7 Neutrophil 63.5 % 35.0-75.0 Lymphocyte 22.1 % 16.0-52.0 Monocyte 10.1 % High 2.0-10.0 Eosinophil 3.0 % 0.0-5.0 Basophil 1.3 % 0.0-4.0 Abs Neutrophils 4.8 K/uL 2.1-8.0 Abs Lymphocytes 1.7 K/uL 0.8-5.5 Abs Monocytes 0.8 K/uL 0.1-1.0 Abs Eosinophils 0.2 K/uL 0.0-0.5 Abs Basophils 0.1 K/uL 0.0-0.3 Xray 09/12/2018 [facility] - Radiology Cta, Chest, DUE IN EAR[address] [facility] [id number] With Contrast FEBRUARY [phone] Laboratory 05/05/2018 [facility] Hepatitis C NON REACTIVE Non 8, 9 test finding Virus S/CORatio(Sa Reactive Antibody m Uric Acid 5.3 mg/dL 2.6-8.4 Lipid Treatment 05/05/2018 [facility] Cholesterol 188 mg/dL 50-199 Triglycerides 196 mg/dL 30-200 HDL 40 mg/dL 29-71 10 Chol/ HDL Ratio 4.8 ratio 4.0-6.7 VLDL 39 mg/dL High 2-29 LDL (Calc) 109 mg/dL High 20-99 11 Alt 20 U/L 3-42 Ast 16 U/L 8-42 Basic (BMP) 05/05/2018 [facility] Sodium 137 mmol/L 135-146 12 Potassium 4.3 mmol/L 3.5-5.2 Chloride# 104 mmol/L 97-110 13 Carbon Dioxide 23 mmol/L Low 24-34 Glucose 87 mg/dL 70-105 BUN 14 mg/dL 6-26 Creatinine 0.8 mg/dL 0.5-1.4 Calcium 9.0 mg/dL 8.5-10.2 Non [facility] Egfr >60 >60 14 [facility] Egfr >60 >60 15 Anion Gap 10 mmol/L 5-15 16 Lipid 11/04/2017 [facility] Cholesterol 137 mg/dL 50-199 Triglycerides 123 mg/dL 30-200 HDL 29 mg/dL 29-71 17 Chol/ HDL Ratio 4.8 ratio 4.0-6.7 VLDL 25 mg/dL 2-29 LDL (Calc) 84 mg/dL 20-99 18 Basic ([facility]) 11/04/2017 [facility] Sodium 139 mmol/L 135-146 19 Potassium 4.5 mmol/L 3.5-5.2 Chloride# 104 mmol/L 97-110 20 Carbon Dioxide 26 mmol/L 24-34 Glucose 93 mg/dL 70-105 Creatinine 1.1 mg/dL 0.5-1.4 Calcium 9.0 mg/dL 8.5-10.2 Non [facility] Egfr >60 >60 21 [facility] Egfr >60 >60 22 Anion Gap 9 mmol/L 7-16 23 BUN 21 mg/dL 6-26 CBC With Auto Diff 11/04/2017 [facility] WBC 9.4 K/uL 4.1-11.0 RBC 5.24 M/uL 4.60-6.10 Hemoglobin 15.8 gm/dL 13.5-18.0 Hematocrit 47.3 % 41.0-53.0 MCV 90.4 fL 80.0-97.0 MCH 30.3 pg 27.0-32.0 MCHC 33.5 g/dL 32.0-36.0 RDW 12.8 % 11.5-14.5 PLT Count 189 K/ul 140-400 MPV 10.3 FL 7.1-10.7 Neutrophil 66.2 % 35.0-75.0 Lymphocyte 19.2 % 16.0-52.0 Monocyte 11.6 % High 2.0-10.0 Eosinophil 2.5 % 0.0-5.0 Basophil 0.5 % 0.0-4.0 Abs Neutrophils 6.2 K/uL 2.1-8.0 Abs Lymphocytes 1.8 K/uL 0.8-5.5 Abs Monocytes 1.1 K/uL High 0.1-1.0 Abs Eosinophils 0.2 K/uL 0.0-0.5 Abs Basophils 0.0 K/uL 0.0-0.3 Lipid Treatment 05/04/2017 [facility] Cholesterol 194 mg/dL 50-199 24 Triglycerides 212 mg/dL High 30-200 HDL 37 mg/dL 25 Chol/ HDL Ratio 5.3 ratio 4.0-6.7 VLDL 42 mg/dL High 2- LDL (Calc) 115 mg/dL High - 26 Alt 21 U/L 3-42 Ast 15 U/L 8-42 Basic (BMP) 05/04/2017 [facility] Sodium 139 mmol/L 135-146 27 Potassium 4.4 mmol/L 3.5-5.2 Chloride# 105 mmol/L 97-110 28 Carbon Dioxide 27 mmol/L 24-34 Glucose 99 mg/dL 70-105 BUN 22 mg/dL 6-26 Creatinine 1.0 mg/dL 0.5-1.4 Calcium 8.8 mg/dL 8.5-10.2 Non [facility] Egfr >60 >60 29 [facility] Egfr >60 >60 30 Anion Gap 11 mmol/L 7-16 31 Laboratory test finding 05/04/2017 [facility] Uric Acid 6.1 mg/dL 2.6-8.4 PSA Total And Free -RL 05/04/2017 [facility] PSA Total 0.6 ng/mL (0.0-4.0) PSA Free 0.1 ng/mL PSA % Free 17 % 32 Lipid Treatment 09/16/2016 [facility] Cholesterol 181 mg/dL 50-199 Triglycerides 220 mg/dL High 30-200 HDL 33 mg/dL 33 Chol/ HDL Ratio 5.5 ratio 4.0-6.7 VLDL 44 mg/dL High 2-29 LDL (Calc) 104 mg/dL High - 34 Alt 18 U/L 3-42 Ast 14 U/L 8-42 Basic (BMP) 09/16/2016 [facility] Sodium 136 mmol/L 134-142 Potassium 4.6 mmol/L 3.5-5.2 Chloride 103 mmol/L 97-109 Carbon Dioxide 27 mmol/L 24-34 Glucose 91 mg/dL 70-105 BUN 20 mg/dL 6-26 Creatinine 1.1 mg/dL 0.5-1.4 Calcium 9.2 mg/dL 8.5-10.2 Anion Gap 11 mmol/L 6-14 Non [facility] Egfr >60 >60 35 [facility] Egfr >60 >60 36 Lipid Treatment 03/30/2016 [facility] Cholesterol 176 mg/dL 50-199 Triglycerides 216 mg/dL High 30-200 HDL 34 mg/dL 29- 37 Chol/ HDL Ratio 5.2 ratio 4.0-6.7 VLDL 43 mg/dL High 2-29 LDL (Calc) 99 mg/dL 20-99 38 Alt 17 U/L 3-42 Ast 15 U/L 8-42 Basic (BMP) 03/30/2016 [facility] Sodium 137 mmol/L 134-142 Potassium 4.4 mmol/L 3.5-5.2 Chloride 105 mmol/L 97-109 Carbon Dioxide 26 mmol/L 24-34 Glucose 85 mg/dL 70-105 BUN 18 mg/dL 6- Creatinine 0.9 mg/dL 0.5-1.4 Calcium 9.0 mg/dL 8.5-10.2 Anion Gap 10 mmol/L 6-14 Non [facility] Egfr >60 >60 39 [facility] Egfr >60 >60 40 Laboratory test finding 03/30/2016 [facility] Uric Acid 6.5 mg/dL 2.6-8.4 Esr 2 mm/hr 0-15 CBC With Auto Diff 03/30/2016 [facility] WBC 7.7 K/uL 4.1-11.0 RBC 5.32 M/uL 4.60-6.10 Hemoglobin 15.6 gm/dL 13.5-18.0 Hematocrit 46.9 % 41.0-53.0 MCV 88.3 fL 80.0-97.0 MCH 29.3 pg 27.0-32.0 MCHC 33.2 g/dL 32.0-36.0 RDW 13.2 % 11.5-14.5 PLT Count 180 K/ul 140-400 Neutrophil 65.6 % 35.0-75.0 Lymphocyte 21.0 % 16.0-52.0 Monocyte 9.6 % 2.0-10.0 Eosinophil 3.1 % 0.0-5.0 Basophil 0.7 % 0.0-4.0 Abs Neutrophils 5.1 K/uL 2.1-8.0 Abs Lymphocytes 1.6 K/uL 0.8-5.5 Abs Monocytes 0.7 K/uL 0.1-1.0 Abs Eosinophils 0.2 K/uL 0.0-0.5 Abs Basophils 0.1 K/uL 0.0-0.3 Laboratory test finding 03/30/2016 [facility] CPK 88 U/L 12-199 Laboratory test finding 03/30/2016 [facility] Lyme Igm/Igg AB NEGATIVE (Neg ) 41 Laboratory test finding 01/27/2016 [facility] Uric Acid 7.4 mg/dL 2.6-8.4 42 Lipid Treatment 01/27/2016 [facility] Cholesterol 170 mg/dL 50-199 Triglycerides 175 mg/dL 30-200 HDL 41 mg/dL 29- 43 Chol/ HDL Ratio 4.1 ratio 4.0-6.7 VLDL 35 mg/dL High 2-29 LDL (Calc) 94 mg/dL 20-99 44 Alt 22 U/L 3-42 Ast 17 U/L 8-42 Basic (BMP) 01/27/2016 [facility] Sodium 136 mmol/L 134-142 Potassium 4.5 mmol/L 3.5-5.2 Chloride 104 mmol/L 97-109 Carbon Dioxide 27 mmol/L 24-34 Glucose 83 mg/dL 70-105 BUN 15 mg/dL 6-26 Creatinine 0.9 mg/dL 0.5-1.4 Calcium 9.2 mg/dL 8.5-10.2 Anion Gap 10 mmol/L 6-14 Non Genesis Egfr >60 >60 45 Genesis Egfr >60 >60 46 Laboratory test finding 01/27/2016 [facility] CPK 89 U/L 12-199 Basic (BMP) 11/06/2015 [facility] Sodium 136 mmol/L 134-142 47 Potassium 4.4 Specimen Sli <SEE NOTE> mmol/L 3.5-5.2 48 Chloride 101 mmol/L 97-109 Carbon Dioxide 25 Extremely kristel <SEE NOTE> mmol/L 24-34 49 Glucose 91 mg/dL 70-105 BUN 18 mg/dL 6-26 Creatinine 0.9 mg/dL 0.5-1.4 Calcium 9.2 mg/dL 8.5-10.2 Anion Gap 14 mmol/L 6-14 Non Genesis Egfr >60 >60 50 Genesis Egfr >60 >60 51 Laboratory test finding 11/06/2015 [facility] TSH 1.12 uIU/mL 0.35-4.94 Lipid Treatment 11/06/2015 [facility] Cholesterol 149 mg/dL 50-199 Triglycerides 191 mg/dL 30-200 HDL 37 mg/dL 29-71 52 Chol/ HDL Ratio 4.0 ratio 4.0-6.7 VLDL 38 mg/dL High 2-29 LDL (Calc) 74 mg/dL 20-99 53 Alt 26 U/L 3-42 Ast 25 U/L 8-42 Laboratory test finding 11/06/2015 [facility] PSA 0.780 ng/mL 0.000-4.000 54 Uric Acid 10.1 mg/dL High 2.6-8.4 Rout Urine W/ Micro -RL 11/06/2015 [facility] Color YELLOW Appearance CLEAR Spec Grav Urine 1.020 (1.003-1.030) PH Urine 6.0 (5.0-7.5) Leuk Esterase 1+ Abnormal (Neg) Nitrite Urine NEGATIVE (Neg) Protein Urine NEGATIVE (Neg) Glucose Urine NEGATIVE (Neg) Ketone Urine NEGATIVE (Neg) Urobilinogen 0.2 mg/dL (0-1.0) Bilirubin Urine NEGATIVE (Neg) Blood/HGB Urine NEGATIVE (Neg) Epithelial Cells NEGATIVE [HPF] (Neg) Hyaline Casts 2.0 [LPF] (0-5) Bacteria NEGATIVE [HPF] (Neg) Urine WBC 4.7 [HPF] (0-8) Urine RBC 0.8 [HPF] (0-3) 55 Laboratory test finding 11/06/2015 N2N/CCD Import PSA Total 0.780 BMP 11/06/2015 N2N/CCD Import BUN - Urea Nitrogen 18 Calcium 9.2 Creatinine 0.9 Potassium 4.4 CBC With Diff 09/26/2015 [facility] WBC 11.5 10*3/uL High (4.1-11.0) [phone] RBC 4.99 10*6/uL (4.60-6.10) HGB 14.4 g/dL (13.5-18.0) HCT 45.4 % (41.0-53.0) MCV 91.1 fL (80.0-95.0) MCH 28.9 pg (27.0-32.0) MCHC 31.7 g/dL Low (32.0-36.0) RDW 12.8 % (10.5-14.5) PLT 246 10*3/uL (150-450) MPV 10.4 fL (7.1-10.7) Neut % 67.0 % (35.0-75.0) Band % 2.0 % (0.0-11.0) Lymph % 14.0 % Low (16.0-52.0) Atyp Lymph % 3.0 % (0.0-5.0) [place] % 10.0 % High (0.0-8.0) Eos % 1.0 % (0.0-5.0) Baso % 1.0 % (0.0-4.0) [place] % 1.0 % High (0.0) Myelo % 1.0 % High (0.0) Neut # 7.7 10*3/uL (1.8-7.7) Band # 0.2 10*3/uL Lymph # 1.6 10*3/uL (1.2-4.8) Atyp Lymph # 0.3 10*3/uL [place] # 1.2 10*3/uL High (0.0-0.8) Eos # 0.1 10*3/uL (0.0-0.5) Baso # 0.1 10*3/uL (0.0-0.2) [place] # 0.1 10*3/uL High (0.0) Myelo # 0.1 10*3/uL High (0.0) Large PLT 1+ BMP (Basic) 09/26/2015 [facility] Sodium 136 mmol/L (136-145) [phone] Potassium 3.8 mmol/L (3.6-5.2) Chloride 100 mmol/L (100-108) Co2 27 mmol/L (22-31) Anion Gap 9 mmol/L (7-16) Urea Nitrogen 13 mg/dL (7-24) Creatinine 1.07 mg/dL (0.80-1.30) BUN/Creat Ratio 12.1 RATIO (10.0-20.0) Glucose 94 mg/dL (70-99) Calcium 9.4 mg/dL (8.4-10.2) GFR >60 ml/min/1.73m2 (>59) GFR ( Amer) >60 ml/min/1.73m2 (>59) GFR Interpretation <SEE NOTE> 56 Laboratory test 09/26/2015 [facility] Uric Acid 5.4 mg/dL (3.5-7.2) finding [phone] Urine Screen 09/22/2015 [facility] Ua RFX Micro See Note 57 (315)- - + Culture II Urinalysis With 09/22/2015 [facility] Urine Color YELLOW Yellow Microscopic (315)- - Urine Clarity SL CLOUDY Clear Urine Glucose - Dipstick NEGATIVE mg/dL Negative Urine Bilirubin - Dipstick NEGATIVE Negative Urine Ketone NEGATIVE mg/dL Negative Urine Specific [place] 1.015 1.010-1.030 Urine Blood LARGE High Negative Urine PH 5.0 Low 6.5-7.5 Urine Protein - Dipstick NEGATIVE mg/dL Negative Urine Urobilinogen - Dipstick 0.2 E.U./dL 0.2-1.0 Urine Nitrite - Dipstick NEGATIVE Negative Urine Leuk Esterase SMALL High Negative Urine RBC 5-10 rbc/hpf High 0-2 Urine WBC 10-20 wbc/hpf High 0-7 Urine Epithelial Cells NONE SEEN NONESEEN/lpf Urine Culture 09/22/2015 [facility] Urine Culture See Note 58 (315)- - Blood Culture 09/22/2015 [facility] Blood Culture See Note 59 (315)- - Aerobic Blood Culture Anaerobic See Note 60 Comprehensive Metabolic 09/22/2015 [facility] Glucose 104 mg/dL 74-106 Panel (315)- - BUN 14 mg/dL 7-18 Creatinine 1.2 mg/dL 0.6-1.3 Glom Filtration Rate, Estimate >60 mL/min >60 If >60 mL/min >60 61 BUN/Creat 11.6 ratio Sodium 136 mmol/L 136-145 Potassium 3.6 mmol/L 3.5-5.1 Chloride 101 mmol/L 98-107 Carbon Dioxide 26 mmol/L 21-32 Anion Gap 9 mEq/L 8-16 Calcium 8.6 mg/dL 8.5-10.1 Total Protein 7.1 g/dL 6.4-8.2 Albumin 3.4 g/dL 3.4-5.0 Globulin 3.7 g/dL 1.9-4.3 Alb/Glob 0.9 ratio Bilirubin,Total 0.6 mg/dL 0.2-1.0 Sgot/Ast 12 U/L Low 15-37 62 SGPT/Alt 20 U/L 12-78 Alkaline Phosphatase 54 U/L 45-117 Laboratory test 09/22/2015 [facility] Thyroid Stim 0.92 uIU/mL 0.36-3.74 finding (315)- - Hormone Lactic Acid 2.9 mmol/L High 0.4-2.0 Salicylate < 1.7 mg/dL Low 2.8-20.0 63 CBC W/Automated 09/22/2015 [facility] White Blood 31.1 K/ uL High 3.4-10.5 Diff (315)- - Count Red Blood Count 4.74 M/uL 4.20-5.80 Hemoglobin 14.6 gm/dL 12.8-17.0 Hematocrit 42.9 % 38.0-48.0 Mean Cell Volume 90.5 fl 80.0-96.0 Mean Corpuscular HGB 30.8 pg 27.0-33.0 Mean Corpuscular HGB Conc 34.0 g/dL 31.7-36.0 Platelet Count 213 K/uL 150-400 Red Cell Distri Width SD 40.9 fl 36-51 Red Cell Distri Width %CV 12.5 % 11.6-15.8 Mean Platelet Volume 11.4 fL High 6.6-10.6 Neut# 28.21 K/uL High 1.8-7.0 Lymph # 0.56 K/uL Low 1.8-7.0 [place] # 2.31 K/uL High 0.0-0.8 Eos # 0.00 K/uL 0.0-0.5 Baso # 0.03 K/uL Low 0.1-0.2 Blood Culture 09/22/2015 [facility] Blood Culture See Note 64 (315)- - Aerobic Blood Culture Anaerobic See Note 65 Differential WBC 09/22/2015 [facility] Total Cells 100 # CELLS Confirm (315)- - Counted Band% 15 % High 0-8 Neutrophils% 74 % High 33-73 Lymph% 4 % Low 17-56 Atypical Lymph% 1 % 0-7 Monocyte% 6 % 0-10 Platelet Estimate NORMAL Toxic Granulation 0-1+ Laboratory test 09/11/2015 N2N/CCD Import BUN/Creatinine Ratio 16.7 Ratio 10.0-20.0 finding GFR MDRD Af Amer >60 >59 ml/min/1.73m2 GFR MDRD Non Af Amer >60 >59 ml/min/1.73m2 Glom Filt Rate, Est See Notes CBC With Auto Diff 07/29/2015 [facility] WBC 8.0 K/uL 4.1-11.0 RBC 5.39 M/uL 4.60-6.10 Hemoglobin 16.1 gm/dL 13.5-18.0 Hematocrit 48.8 % 41.0-53.0 MCV 90.5 fL 80.0-97.0 MCH 29.8 pg 27.0-32.0 MCHC 32.9 g/dL 32.0-36.0 RDW 13.1 % 11.5-14.5 PLT Count 156 K/ul 140-400 Neutrophil 61.8 % 35.0-75.0 Lymphocyte 23.9 % 16.0-52.0 Monocyte 10.6 % High 2.0-10.0 Eosinophil 3.0 % 0.0-5.0 Basophil 0.7 % 0.0-4.0 Abs Neutrophils 5.0 K/uL 2.1-8.0 Abs Lymphocytes 1.9 K/uL 0.8-5.5 Abmon 0.8 K/uL 0.1-1.0 Abs Eosinophils 0.2 K/uL 0.0-0.5 Abs Basophils 0.1 K/uL 0.0-0.3 Basic (BMP) 07/29/2015 [facility] Sodium 139 mmol/L 134-142 Potassium 4.0 mmol/L 3.5-5.2 Chloride 102 mmol/L 97-109 Carbon Dioxide 29 mmol/L 24-34 Glucose 111 mg/dL High 70-105 BUN 17 mg/dL 6-26 Creatinine 1.1 mg/dL 0.5-1.4 Calcium 9.3 mg/dL 8.5-10.2 Anion Gap 12 mmol/L 6-14 Non [facility] Egfr >60 >60 66 [facility] Egfr >60 >60 67 Laboratory test finding 07/29/2015 [facility] TSH 1.76 uIU/mL 0.35-4.94 Lipid Treatment 07/29/2015 [facility] Cholesterol 144 mg/dL 50-199 Triglycerides 219 mg/dL High 30-200 HDL 33 mg/dL - 68 Chol/ HDL Ratio 4.4 ratio 4.0-6.7 VLDL 44 mg/dL High 2-29 LDL (Calc) 67 mg/dL 20-99 69 Alt 20 U/L 3-42 Ast 15 U/L 8-42 Basic (BMP) 01/16/2015 [facility] Sodium 140 mmol/L 134-142 Potassium 4.8 mmol/L 3.5-5.2 Chloride 104 mmol/L 97-109 Carbon Dioxide 29 mmol/L 24-34 Glucose 95 mg/dL 70-105 BUN 21 mg/dL 6-26 Creatinine 1.0 mg/dL 0.5-1.4 Calcium 9.2 mg/dL 8.5-10.2 Anion Gap 12 mmol/L 6-14 Non Genesis Egfr >60 >60 70 Genesis Egfr >60 >60 71 Lipid Treatment 01/16/2015 [facility] Cholesterol 195 mg/dL 50-199 Triglycerides 189 mg/dL 30-200 HDL 34 mg/dL 72 Chol/ HDL Ratio 5.7 ratio 4.0-6.7 VLDL 38 mg/dL High 2-29 LDL (Calc) 123 mg/dL High 20-99 73 Alt 18 U/L 3-42 Ast 14 U/L 8-42 Laboratory test finding 01/16/2015 [facility] CPK 61 U/L 12-199 Lipid Panel 06/28/2014 N2N/CCD Import Chol/HDL Ratio 6.0 ratio Cholesterol 205.0 mg/dL High 50.0-199.0 HDL 34.0 mg/dL 29.0-67.0 LDL, Calculated 119.4 mg/dL 20.0-129.0 Triglycerides 258.0 mg/dL High 30.0-249.0 vLDL 51.6 ng/dL Laboratory test finding 06/28/2014 N2N/CCD Import % Baso. 1.0 % 0.0-2.0 % Eos. 2.6 % 0.0-4.0 % Lymph 24 % 20-44 % [place] 9.7 % 2.0-10.0 % Steve 63 % 50-70 Absolute Baso. 0.1 K/ul 0.0-0.3 Absolute Eos. 0.2 K/ul 0.0-0.5 Absolute Lymph. 2.0 K/ul 0.8-4.8 Absolute [place]. 0.8 K/ul 0.1-1.0 Absolute Steve. 5.19 K/ul 2.05-7.63 Alt 32.0 U/L 21.0-72.0 Ast 23.0 U/L 17.0-59.0 BUN 13.0 mg/dL 9.0-21.0 BUN/Creat Ratio 13.0 ratio 12.0-20.0 Calcium 9.5 mg/dL 8.7-10.5 Chloride 102.0 mmol/L 98.0-107.0 Co2 27.0 mmol/L 22.0-30.0 Creatinine-Serum 1.0 mg/dL 0.8-1.5 Glucose 99.0 mg/dL 75.0-110.0 HCT 50.9 % 37.0-51.0 HGB 16.7 Gm/dl High 12.0-16.0 MCH 29.0 pg 26.0-32.0 MCHC 32.7 g/dL 31.0-36.0 MCV 88.6 Fl 80.0-97.0 MPV 12.7 fL High 6.0-10.0 PLT 177 K/ul 140-440 Potasium 3.9 mmol/L 3.6-5.0 RBC 5.8 M/ul 4.2-6.3 RDW 11.6 % 11.5-14.5 Sodium 138.0 mmil/L 137.0-145.0 TSH 1.35 uIU/ml 0.50-6.00 WBC 8.3 K/ul 4.1-10.9 ck 81.0 26.0-190.0 eGFR 80.0 Lipid Panel 12/03/2013 N2N/CCD Import Chol/HDL Ratio 5.4 ratio Cholesterol 194.0 mg/dL 50.0-199.0 HDL 36.0 mg/dL 29.0-67.0 LDL, Calculated 110.2 mg/dL 20.0-129.0 Triglycerides 239.0 mg/dL 30.0-249.0 vLDL 47.8 ng/dL Laboratory test finding 12/03/2013 N2N/CCD Import Alt 26.0 U/L 21.0- 72.0 Ast 17.0 U/L 17.0-59.0 BUN 13.0 mg/dL 9.0-21.0 BUN/Creat Ratio 11.8 ratio Low 12.0-20.0 Calcium 9.4 mg/dL 8.7-10.5 Chloride 105.0 mmol/L 98.0-107.0 Co2 27.0 mmol/L 22.0-30.0 Creatinine-Serum 1.1 mg/dL 0.8-1.5 Glucose 103.0 mg/dL 75.0-110.0 Potasium 4.4 mmol/L 3.6-5.0 Sodium 141.0 mmil/L 137.0-145.0 eGFR 71.6 Lipid Panel 08/20/2013 N2N/CCD Import Chol/HDL Ratio 6.0 ratio Cholesterol 254.0 mg/dL High 50.0-199.0 HDL 42.0 mg/dL 29.0-67.0 LDL, Calculated 153.8 mg/dL High 20.0-129.0 Triglycerides 291.0 mg/dL High 30.0-249.0 vLDL 58.2 ng/dL Laboratory test finding 08/20/2013 N2N/CCD Import % Baso. 0.8 % 0.0-2.0 % Eos. 1.8 % 0.0-4.0 % Lymph 18 % Low 20-44 % [place] 8.6 % 2.0-10.0 % Steev 71 % High 50-70 A/G Ratio 1.4 ratio Low 1.6-2.2 Absolute Baso. 0.1 K/ul 0.0-0.3 Absolute Eos. 0.2 K/ul 0.0-0.5 Absolute Lymph. 1.9 K/ul 0.8-4.8 Absolute [place]. 0.9 K/ul 0.1-1.0 Absolute Steve. 7.83 K/ul High 2.05-7.63 Albumin 4.5 g/dL 3.5-5.0 Alk. Phos. 57.0 U/L 30.0-126.0 Alt 30.0 U/L 21.0-72.0 Anion Gap 11.0 mmol/L 10.0-20.0 Ast 22.0 U/L 17.0-59.0 BUN 17.0 mg/dL 9.0-21.0 BUN/Creat Ratio 17.0 ratio 12.0-20.0 Calcium 9.9 mg/dL 8.7-10.5 Chloride 103.0 mmol/L 98.0-107.0 Co2 25.0 mmol/L 22.0-30.0 Creatinine-Serum 1.0 mg/dL 0.8-1.5 Globulin 3.3 g/dL 2.7-4.3 Glucose 103.0 mg/dL 75.0-110.0 HCT 53.6 % High 37.0-51.0 HGB 16.5 Gm/dl High 12.0-16.0 MCH 28.4 pg 26.0-32.0 MCHC 30.9 g/dL Low 31.0-36.0 MCV 92.1 Fl 80.0-97.0 MPV 10.5 fL High 6.0-10.0 PLT 222 K/ul 140-440 [place]as[place] 4.6 mmol/L 3.6-5.0 RBC 5.8 M/ul 4.2-6.3 RDW 11.9 % 11.5-14.5 Sodium 139.0 mmil/L 137.0-145.0 TSH 0.89 uIU/ml 0.50-6.00 Total Bilirubin 0.6 mg/dL 0.2-1.3 Total Protein 7.8 g/dL 6.3-8.2 WBC 11.0 K/ul High 4.1-10.9 eGFR 81.7 mi/minper1.73 74 Lipid Panel 10/16/2012 N2N/CCD Import Chol/HDL Ratio 5.5 75, 76 Cholesterol 223 mg/dL High 50-199 HDL Cholesterol 40 mg/dL 29-67 LDL 127 mg/dL 20-129 Triglycerides 281 mg/dL High 30-249 VLDL Cholesterol 56 mg/dL Laboratory test finding 10/16/2012 N2N/CCD Import A/G Ratio 1.1 1.0-2.2 Albumin 3.9 g/dL 3.5-5.0 Alkaline Phosphatase 69 U/L 30-126 Alt 34 U/L 21-72 Ast 27 U/L 17-59 BUN 17 mg/dL 9-21 BUN/CR Ratio 18.7 Ratio 12-20 Calcium 9.1 mg/dL 8.7-10.5 Carbon Dioxide 27 mmol/L 22-30 Chloride 103 mmol/L 98-107 Creatinine, Serum 0.9 mg/dL 0.8-1.5 Globulin 3.5 g/dL 2.7-4.3 Glucose 94 mg/dL 75-110 Potassium 4.5 mmol/L 3.6-5.0 Sodium 141 mmol/L 137-145 TSH 2.919 uIU/ml 0.50-6.00 Total Bilirubin 0.7 mg/dL 0.2-1.3 Total Protein 7.4 g/dL 6.3-8.2 Laboratory test finding 06/06/2012 N2N/CCD Import A/G Ratio 1.1 1.0-2.2 Albumin 4.0 g/dL 3.5-5.0 Alkaline Phosphatase 67 U/L 30-126 Alt 33 U/L 21-72 Ast 26 U/L 17-59 BUN 19 mg/dL 9-21 BUN/CR Ratio 20.8 Ratio High 12-20 Calcium 8.5 mg/dL Low 8.7-10.5 Carbon Dioxide 24 mmol/L 22-30 Chloride 104 mmol/L 98-107 Creatinine, Serum 0.9 mg/dL 0.8-1.5 Globulin 3.5 g/dL 2.7-4.3 Glucose 93 mg/dL 75-110 Potassium 4.5 mmol/L 3.6-5.0 Sodium 137 mmol/L 137-145 Total Bilirubin 0.7 mg/dL 0.2-1.3 Total Protein 7.5 g/dL 6.3-8.2 Lipid Panel 06/06/2012 N2N/CCD Import Chol/HDL Ratio 5.3 77 Cholesterol 231 mg/dL High 50-199 HDL Cholesterol 43 mg/dL 29-67 LDL 137 mg/dL High 20-129 Triglycerides 257 mg/dL High 30-249 VLDL Cholesterol 51 mg/dL Laboratory test finding 09/22/2011 N2N/CCD Import %Free PSA 24.3 % . 78 , 79 A/G Ratio 1.1 1.0-2.2 Absolute Basophils 0.066 K/ul 0.0-0.3 Absolute Eosinophils 0.183 K/ul 0.0-0.5 Absolute Lymphocytes 2.32 K/ul 0.8-4.8 Absolute Monocytes 0.676 K/ul 0.1-1.0 Absolute Neutrophils 4.81 K/ul 2.05-7.63 Albumin 3.9 g/dL 3.5-5.0 Alkaline Phosphatase 67 U/L 30-126 Alt 27 U/L 21-72 Ast 22 U/L 17-59 BUN 16 mg/dL 9-21 BUN/CR Ratio 16.7 Ratio 12-20 Basophil 0.8 % 0-2 Calcium 9.0 mg/dL 8.7-10.5 Carbon Dioxide 27 mmol/L 22-30 Chloride 106 mmol/L 98-107 Creatinine, Serum 0.9 mg/dL 0.8-1.5 Eosinophil 2.3 % 0-4 Globulin 3.4 g/dL 2.7-4.3 Glucose 83 mg/dL 75-110 Hematocrit 48.5 % 37.0-51.0 Hemoglobin 15.4 GM/dl 12.0-16.0 Lymphocytes 28.8 % 20-44 MCH 27.5 pg 26.0-32.0 MCHC 31.7 g/dL 31.0-36.0 MCV 87 FL 80-97 Monocytes 8.4 % 2-10.0 Neutrophils 59.7 % 50-70 PSA,Free 0.17 N/Ang/mL 80 Platelet Count 189 K/ul 140-440 Potassium 4.4 mmol/L 3.6-5.0 Prostate-specific antigen,Seru 0.7 ng/mL 0.0-4.0 81 RBC 5.58 M/ul 4.2-6.3 RDW 11.6 % 11.5-14.5 Sodium 141 mmol/L 137-145 TSH 3.327 uIU/ml 0.50-6.00 Total Bilirubin 0.6 mg/dL 0.2-1.3 Total Protein 7.3 g/dL 6.3-8.2 WBC 8.1 K/ul 4.1-10.9 Lipid Panel 09/22/2011 N2N/CCD Import Chol/HDL Ratio 5.0 82 Cholesterol 206 mg/dL High 50-199 HDL Cholesterol 41 mg/dL 29-67 LDL 110 mg/dL 20-129 Triglycerides 274 mg/dL High 30-249 VLDL Cholesterol 55 mg/dL Laboratory test finding 10/14/2010 N2N/CCD Import A/G Ratio 1.2 1.0-2.2 83 Absolute Basophils 0.061 K/ul 0.0-0.3 Absolute Eosinophils 0.124 K/ul 0.0-0.5 Absolute Lymphocytes 1.83 K/ul 0.8-4.8 Absolute Monocytes 0.616 K/ul 0.1-1.0 Absolute Neutrophils 3.94 K/ul 2.05-7.63 Albumin 3.9 g/dL 3.5-5.0 Alkaline Phosphatase 63 U/L 30-126 Alt 34 U/L 21-72 Ast 21 U/L 17-59 BUN 20 mg/dL 9-21 BUN/CR Ratio 20.8 Ratio High 12-20 Basophil 0.9 % 0-2 Calcium 9.2 mg/dL 8.7-10.5 Carbon Dioxide 26 mmol/L 22-30 Chloride 105 mmol/L 98-107 Creatinine, Serum 1.0 mg/dL 0.8-1.5 Eosinophil 1.9 % 0-4 Globulin 3.2 g/dL 2.7-4.3 Glucose 90 mg/dL 75-110 Hematocrit 46.7 % 37.0-51.0 Hemoglobin 15.3 GM/dl 12.0-16.0 Lymphocytes 27.9 % 20-44 MCH 29.6 pg 26.0-32.0 MCHC 32.9 g/dL 31.0-36.0 MCV 90 FL 80-97 Monocytes 9.4 % 2-10.0 Neutrophils 59.9 % 50-70 PSA 0.52 ng/mL 0.00-4.00 Platelet Count 204 K/ul 140-440 Potassium 4.7 mmol/L 3.6-5.0 RBC 5.19 M/ul 4.2-6.3 RDW 12.0 % 11.5-14.5 Sodium 139 mmol/L 137-145 TSH 1.491 uIU/ml 0.50-6.00 Total Bilirubin 0.4 mg/dL 0.2-1.3 Total Protein 7.1 g/dL 6.3-8.2 WBC 6.6 K/ul 4.1-10.9 Lipid Panel 10/14/2010 N2N/CCD Import Chol/HDL Ratio 5.0 84 Cholesterol 210 mg/dL High 50-199 HDL Cholesterol 42 mg/dL 29-67 LDL 134 mg/dL High 20-129 Triglycerides 169 mg/dL 30-249 VLDL Cholesterol 34 mg/dL 1 Per NCEP ATP III Guidelines: Results lower than 40 mg/dL are suggestive of increased risk for coronary artery disease. Results > or=to 60 mg/dL are considered a negative risk factor. 2 Per NCEP ATP III Guidelines: Normal Population <130 Patients with medical conditions: CHD/DM Optimal: <100 Borderline high: 130-159 High: 160-189 Very high: >189 3 Updated reference range on new analyzer 4 Updated reference range on new analyzer 5 Concerning GFR Guidelines: Normal function or mild renal disease, if clinically at risk: >/=60 mL/min Moderately decreased: 30-59 Severely decreased: 15-29 Renal failure: <15 Glomerular Filtration Rate (GFR) is estimated based on the MDRD equation, which assumes a steady state for creatinine as recommended by the National Kidney Disease Education Program in conjunction with the National Institutes of Health and the National Kidney Foundation. Clinical conditions in which it may be necessary to measure GFR by using clearance methods include extremes of age and body size, severe malnutrition or obesity, diseases of skeletal muscle, paraplegia or quadriplegia, vegetarian diet, rapidly changing kidney function, and calculation of the dose of potentially toxic drugs that are excreted by the kidneys. 6 Concerning GFR Guidelines for Americans: Normal function or mild renal disease, if clinically at risk: >/=60 mL/min Moderately decreased: 30-59 Severely decreased: 15-29 Renal failure: <15 7 Updated Reference Range 8 2 SSTSpecimen received unspun to be done April 2018 1 week prior to OV 9 S/CO Ratio >/=1.0 is REACTIVE. S/CO <5.0 is Low Reactive. S/CO >/= 5.0 is High Reactive. Effective Jun 24, 2017 all anti-HCV reactive samples are sent for quantitative PCR confirmation. 10 Per NCEP ATP III Guidelines: Results lower than 40 mg/dL are suggestive of increased risk for coronary artery disease. Results > or=to 60 mg/dL are considered a negative risk factor. 11 Per NCEP ATP III Guidelines: Normal Population <130 Patients with medical conditions: CHD/DM Optimal: <100 Borderline high: 130-159 High: 160-189 Very high: >189 12 Updated reference range on new analyzer 13 Updated reference range on new analyzer 14 Concerning GFR Guidelines: Normal function or mild renal disease, if clinically at risk: >/=60 mL/min Moderately decreased: 30-59 Severely decreased: 15-29 Renal failure: <15 Glomerular Filtration Rate (GFR) is estimated based on the MDRD equation, which assumes a steady state for creatinine as recommended by the National Kidney Disease Education Program in conjunction with the National Institutes of Health and the National Kidney Foundation. Clinical conditions in which it may be necessary to measure GFR by using clearance methods include extremes of age and body size, severe malnutrition or obesity, diseases of skeletal muscle, paraplegia or quadriplegia, vegetarian diet, rapidly changing kidney function, and calculation of the dose of potentially toxic drugs that are excreted by the kidneys. 15 Concerning GFR Guidelines for Americans: Normal function or mild renal disease, if clinically at risk: >/=60 mL/min Moderately decreased: 30-59 Severely decreased: 15-29 Renal failure: <15 16 Updated Reference Range 17 Per NCEP ATP III Guidelines: Results lower than 40 mg/dL are suggestive of increased risk for coronary artery disease. Results > or=to 60 mg/dL are considered a negative risk factor. 18 Per NCEP ATP III Guidelines: Normal Population <130 Patients with medical conditions: CHD/DM Optimal: <100 Borderline high: 130-159 High: 160-189 Very high: >189 19 Updated reference range on new analyzer 20 Updated reference range on new analyzer 21 Concerning GFR Guidelines: Normal function or mild renal disease, if clinically at risk: >/=60 mL/min Moderately decreased: 30-59 Severely decreased: 15-29 Renal failure: <15 Glomerular Filtration Rate (GFR) is estimated based on the MDRD equation, which assumes a steady state for creatinine as recommended by the National Kidney Disease Education Program in conjunction with the National Institutes of Health and the National Kidney Foundation. Clinical conditions in which it may be necessary to measure GFR by using clearance methods include extremes of age and body size, severe malnutrition or obesity, diseases of skeletal muscle, paraplegia or quadriplegia, vegetarian diet, rapidly changing kidney function, and calculation of the dose of potentially toxic drugs that are excreted by the kidneys. 22 Concerning GFR Guidelines for Americans: Normal function or mild renal disease, if clinically at risk: >/=60 mL/min Moderately decreased: 30-59 Severely decreased: 15-29 Renal failure: <15 23 Updated reference range on new analyzer 24 10 year risk 18% with SBP 122 25 Per NCEP ATP III Guidelines: Results lower than 40 mg/dL are suggestive of increased risk for coronary artery disease. Results > or=to 60 mg/dL are considered a negative risk factor. 26 Per NCEP ATP III Guidelines: Normal Population <130 Patients with medical conditions: CHD/DM Optimal: <100 Borderline high: 130-159 High: 160-189 Very high: >189 27 Updated reference range on new analyzer 28 Updated reference range on new analyzer 29 Concerning GFR Guidelines: Normal function or mild renal disease, if clinically at risk: >/=60 mL/min Moderately decreased: 30-59 Severely decreased: 15-29 Renal failure: <15 Glomerular Filtration Rate (GFR) is estimated based on the MDRD equation, which assumes a steady state for creatinine as recommended by the National Kidney Disease Education Program in conjunction with the National Institutes of Health and the National Kidney Foundation. Clinical conditions in which it may be necessary to measure GFR by using clearance methods include extremes of age and body size, severe malnutrition or obesity, diseases of skeletal muscle, paraplegia or quadriplegia, vegetarian diet, rapidly changing kidney function, and calculation of the dose of potentially toxic drugs that are excreted by the kidneys. 30 Concerning GFR Guidelines for Americans: Normal function or mild renal disease, if clinically at risk: >/=60 mL/min Moderately decreased: 30-59 Severely decreased: 15-29 Renal failure: <15 31 Updated reference range on new analyzer 32 % FREE PSA PROBABILITY OF CANCER 0 - 10% 56% 10 - 15% 28% 15 - 20% 20% 20 - 25% 16% GREATER THAN 25% 8% THE FREE PSA PERCENTAGE IS AN AID IN DISTINGUISHING PROSTATE CANCER FROM BENIGN PROSTATIC CONDITIONS IN MEN AGE 50 AND OLDER WITH A TOTAL PSA BETWEEN 3 AND 10 NG/ML AND NEGATIVE DIGITAL RECTAL EXAMINATION FINDINGS. PROSTATIC BIOPSY IS REQUIRED FOR THE DIAGNOSIS OF CANCER. (See: STUART 1998; 279: [id number]) METHOD USED TO ASSAY BOTH FREE PSA AND TOTAL PSA IS DELIO ACCESS/DXI (CHEMILUMINESCENCE IMMUNOASSAY, HYBRITECH CALIBRATION). RESULTS SHOULD NOT BE INTERPRETED ABSOLUTE EVIDENCE FOR THE PRESENCE OR ABSENCE OF MALIGNANT DISEASE. VALUES OBTAINED WITH DIFFERENT ASSAY METHODS OR KITS CANNOT BE USED INTERCHANGEABLY. Unless otherwise specified, testing performed by [facility] [address] [place] [id number] Per NCEP ATP III Guidelines: Results lower than 40 mg/dL are suggestive of increased risk for coronary artery disease. Results > or=to 60 mg/dL are considered a negative risk factor. 34 Per NCEP ATP III Guidelines: Normal Population <130 Patients with medical conditions: CHD/DM Optimal: <100 Borderline high: 130-159 High: 160-189 Very high: >189 35 Concerning GFR Guidelines: Normal function or mild renal disease, if clinically at risk: >/=60 mL/min Moderately decreased: 30-59 Severely decreased: 15-29 Renal failure: <15 Glomerular Filtration Rate (GFR) is estimated based on the MDRD equation, which assumes a steady state for creatinine as recommended by the National Kidney Disease Education Program in conjunction with the National Institutes of Health and the National Kidney Foundation. Clinical conditions in which it may be necessary to measure GFR by using clearance methods include extremes of age and body size, severe malnutrition or obesity, diseases of skeletal muscle, paraplegia or quadriplegia, vegetarian diet, rapidly changing kidney function, and calculation of the dose of potentially toxic drugs that are excreted by the kidneys. 36 Concerning GFR Guidelines for Americans: Normal function or mild renal disease, if clinically at risk: >/=60 mL/min Moderately decreased: 30-59 Severely decreased: 15-29 Renal failure: <15 37 Per NCEP ATP III Guidelines: Results lower than 40 mg/dL are suggestive of increased risk for coronary artery disease. Results > or=to 60 mg/dL are considered a negative risk factor. 38 Per NCEP ATP III Guidelines: Normal Population <130 Patients with medical conditions: CHD/DM Optimal: <100 Borderline high: 130-159 High: 160-189 Very high: >189 39 Concerning GFR Guidelines: Normal function or mild renal disease, if clinically at risk: >/=60 mL/min Moderately decreased: 30-59 Severely decreased: 15-29 Renal failure: <15 Glomerular Filtration Rate (GFR) is estimated based on the MDRD equation, which assumes a steady state for creatinine as recommended by the National Kidney Disease Education Program in conjunction with the National Institutes of Health and the National Kidney Foundation. Clinical conditions in which it may be necessary to measure GFR by using clearance methods include extremes of age and body size, severe malnutrition or obesity, diseases of skeletal muscle, paraplegia or quadriplegia, vegetarian diet, rapidly changing kidney function, and calculation of the dose of potentially toxic drugs that are excreted by the kidneys. 40 Concerning GFR Guidelines for Americans: Normal function or mild renal disease, if clinically at risk: >/=60 mL/min Moderately decreased: 30-59 Severely decreased: 15-29 Renal failure: <15 41 A Negative serologic test for Lyme Disease indicates no serologic evidence of infection with B burgdorferi at the time this specimen was collected. A repeat specimen should be collected in 2 to 4 weeks if clinically indicated. Unless otherwise specified, testing performed by [facility] [address] [place] [id number] 42 Fastin hours 43 Per NCEP ATP III Guidelines: Results lower than 40 mg/dL are suggestive of increased risk for coronary artery disease. Results > or=to 60 mg/dL are considered a negative risk factor. 44 Per NCEP ATP III Guidelines: Normal Population <130 Patients with medical conditions: CHD/DM Optimal: <100 Borderline high: 130-159 High: 160-189 Very high: >189 45 Concerning GFR Guidelines: Normal function or mild renal disease, if clinically at risk: >/=60 mL/min Moderately decreased: 30-59 Severely decreased: 15-29 Renal failure: <15 Glomerular Filtration Rate (GFR) is estimated based on the MDRD equation, which assumes a steady state for creatinine as recommended by the National Kidney Disease Education Program in conjunction with the National Institutes of Health and the National Kidney Foundation. Clinical conditions in which it may be necessary to measure GFR by using clearance methods include extremes of age and body size, severe malnutrition or obesity, diseases of skeletal muscle, paraplegia or quadriplegia, vegetarian diet, rapidly changing kidney function, and calculation of the dose of potentially toxic drugs that are excreted by the kidneys. 46 Concerning GFR Guidelines for Americans: Normal function or mild renal disease, if clinically at risk: >/=60 mL/min Moderately decreased: 30-59 Severely decreased: 15-29 Renal failure: <15 47 please send copy to Dr. Harvey 48 4.4 Specimen Slightly Hemolyzed 49 25 Extremely short draw 50 Concerning GFR Guidelines: Normal function or mild renal disease, if clinically at risk: >/=60 mL/min Moderately decreased: 30-59 Severely decreased: 15-29 Renal failure: <15 Glomerular Filtration Rate (GFR) is estimated based on the MDRD equation, which assumes a steady state for creatinine as recommended by the National Kidney Disease Education Program in conjunction with the National Institutes of Health and the National Kidney Foundation. Clinical conditions in which it may be necessary to measure GFR by using clearance methods include extremes of age and body size, severe malnutrition or obesity, diseases of skeletal muscle, paraplegia or quadriplegia, vegetarian diet, rapidly changing kidney function, and calculation of the dose of potentially toxic drugs that are excreted by the kidneys. 51 Concerning GFR Guidelines for Americans: Normal function or mild renal disease, if clinically at risk: >/=60 mL/min Moderately decreased: 30-59 Severely decreased: 15-29 Renal failure: <15 52 Per NCEP ATP III Guidelines: Results lower than 40 mg/dL are suggestive of increased risk for coronary artery disease. Results > or=to 60 mg/dL are considered a negative risk factor. 53 Per NCEP ATP III Guidelines: Normal Population <130 Patients with medical conditions: CHD/DM Optimal: <100 Borderline high: 130-159 High: 160-189 Very high: >189 54 Beginning 12/26/06 PSA values assayed at [facility] uses an EIA methodology manufactured by [employer] for use on the DXI analyzer. Values obtained with different assay methods or kits can not be used interchangeably. Serum PSA measurement is not an absolute test for malignancy. The PSA value should be used in conjunction with information available from clinical evaluation and other diagnostic procedures. 55 Unless otherwise specified, testing performed by [facility] [address] [place] [id number] 56 NORMAL KIDNEY FUNCTION OR MILD DISEASE - GFR >OR=60 CHRONIC KIDNEY DISEASE - GFR 15 - 59 RENAL FAILURE - GFR <15 Est. GFR calculation based on the MDRD study equation, which assumes a steady state for creatinine. Est. GFR should not be used for medication dosing. 57 09/22/15 LAB.RAP Deleted by [facility] 58 Organism 1 ! PSEUDOMONAS AERUGINOSA Quantity ! > 100,000 CFU/mL NOTE: ! IF ANTIPSEUDOMONAL PENICILLINS ARE PRESCRIBED, ! AN AMINOGLYCOSIDE SHOULD BE GIVEN IN ADDITION. Organism 2 ! URETHRAL FORREST Quantity ! < 10,000 CFU/mL PSEUDOMONAS AERUGINOSA Target Route Dose M.I.C. RX AB COST ------ ----- -------- ------ -- ------ CIPROFLOXACIN <=0.25 S PIPERACILLIN/TAZOBACTAM 8 S CEFTAZIDIME 2 S LEVOFLOXACIN 0.5 S IMIPENEM 1 S GENTAMICIN 2 S TOBRAMYCIN <=1 S 59 NO GROWTH: FINAL REPORT 60 NO GROWTH: FINAL REPORT 61 Note: Persistent reduction for 3 months or more in an eGFR <60 mL/min/1.73 m2 defines CKD. Patients with eGFR values >/=60 mL/min/1.73 m2 may also have CKD if evidence of persistent proteinuria is present. The original MDRD equation for estimated GFR is not valid for patients less than 18 years of age. Additional information may be found at www.kdoqi.org. 62 Values below the stated reference ranges of AST and ALT can be seen in normal populations. Clinical correlation is suggested. 63 THERAPEUTIC RANGE: 15-30 mg/dL POTENTIAL TOXICITY VARIES WITH TIME FROM INGESTION. PLEASE CONSULT APPROPRIATE NOMOGRAM. 64 NO GROWTH: FINAL REPORT 65 NO GROWTH: FINAL REPORT 66 Concerning GFR Guidelines: Normal function or mild renal disease, if clinically at risk: >/=60 mL/min Moderately decreased: 30-59 Severely decreased: 15-29 Renal failure: <15 Glomerular Filtration Rate (GFR) is estimated based on the MDRD equation, which assumes a steady state for creatinine as recommended by the National Kidney Disease Education Program in conjunction with the National Institutes of Health and the National Kidney Foundation. Clinical conditions in which it may be necessary to measure GFR by using clearance methods include extremes of age and body size, severe malnutrition or obesity, diseases of skeletal muscle, paraplegia or quadriplegia, vegetarian diet, rapidly changing kidney function, and calculation of the dose of potentially toxic drugs that are excreted by the kidneys. 67 Concerning GFR Guidelines for Americans: Normal function or mild renal disease, if clinically at risk: >/=60 mL/min Moderately decreased: 30-59 Severely decreased: 15-29 Renal failure: <15 68 Per NCEP ATP III Guidelines: Results lower than 40 mg/dL are suggestive of increased risk for coronary artery disease. Results > or=to 60 mg/dL are considered a negative risk factor. 69 Per NCEP ATP III Guidelines: Normal Population <130 Patients with medical conditions: CHD/DM Optimal: <100 Borderline high: 130-159 High: 160-189 Very high: >189 70 Concerning GFR Guidelines: Normal function or mild renal disease, if clinically at risk: >/=60 mL/min Moderately decreased: 30-59 Severely decreased: 15-29 Renal failure: <15 Glomerular Filtration Rate (GFR) is estimated based on the MDRD equation, which assumes a steady state for creatinine as recommended by the National Kidney Disease Education Program in conjunction with the National Institutes of Health and the National Kidney Foundation. Clinical conditions in which it may be necessary to measure GFR by using clearance methods include extremes of age and body size, severe malnutrition or obesity, diseases of skeletal muscle, paraplegia or quadriplegia, vegetarian diet, rapidly changing kidney function, and calculation of the dose of potentially toxic drugs that are excreted by the kidneys. 71 Concerning GFR Guidelines for Americans: Normal function or mild renal disease, if clinically at risk: >/=60 mL/min Moderately decreased: 30-59 Severely decreased: 15-29 Renal failure: <15 72 Per NCEP ATP III Guidelines: Results lower than 40 mg/dL are suggestive of increased risk for coronary artery disease. Results > or=to 60 mg/dL are considered a negative risk factor. 73 Per NCEP ATP III Guidelines: Normal Population <130 Patients with medical conditions: CHD/DM Optimal: <100 Borderline high: 130-159 High: 160-189 Very high: >189 74 For -[place] patients multiply result by 1.180 75 FASTING 76 Normal Range: Male: <4.98 Female: <4.45 77 Normal Range: Male: <4.98 Female: <4.45 78 SCHEDULE BEFORE NEXT OV 79 The table below lists the probability of prostate cancer for men with non-suspicious LEIGHA results and total PSA between 4 and 10 ng/mL, by patient age (Roxane et al, STUART 1998, [id number]). % Free PSA 50-64 yr 65-75 yr 0.00- 10.00% 56% 55% 10.01-15.00% 24% 35% 15.01-20.00% 17% 23% 20.01-25.00% 10% 20% > 25.00% 5% 9% Please note: Roxane et al did not make specific recommendations regarding the use of percent free PSA for any other population of men. Performed at: [address] [id number] [employer] Operator: Shreyas Hussein MD, Phone: [phone] 80 Sanjana ECLIA methodology. 81 Sanjana ECLIA methodology. According to the [place] [employer], Serum PSA should decrease and remain at undetectable levels after radical prostatectomy. The AUA defines biochemical recurrence as an initial PSA value 0.2 ng/mL or greater followed by a subsequent confirmatory PSA value 0.2 ng/mL or greater. Values obtained with different assay methods or kits cannot be used interchangeably. Results cannot be interpreted as absolute evidence of the presence or absence of malignant disease. 82 Normal Range: Male: <4.98 Female: <4.45 83 FASTING 84 Normal Range: Male: <4.98 Female: <4.45 Procedures Date Code Description Status 11/21/2018 40494 Brief Emotional/Behav Assessment W/ Scoring Doc Per Completed Standard Inst 11/21/2018 14362 Remove Impact Cerumen Irrigation/Lavage Completed 09/12/2018 92916 Measure Blood Oxygen Level Single Determination Completed 05/16/2018 84192 Brief Emotional/Behav Assessment W/ Scoring Doc Per Completed Standard Inst 12/16/2017 45698 Electrocardiogram Complete Completed 05/10/2017 98936 Brief Emotional/Behav Assessment W/ Scoring Doc Per Completed Standard Inst 04/04/2017 82363 Remove Impacted Cerumen Requiring Instrumentation Completed 12/15/2016 72113 Measure Blood Oxygen Level Single Determination Completed 04/20/2016 30280409 Colonoscopy Completed 12/30/2015 88334 Measure Blood Oxygen Level Single Determination Completed 08/27/2015 81554 Electrocardiogram Complete Completed 08/25/2015 44743 Measure Blood Oxygen Level Single Determination Completed 08/08/2015 79580 Visual Screening Test Completed 08/08/2015 35457 Screening Hearing Test Completed 06/12/2015 24096 Electrocardiogram Complete Completed 09/05/2014 03097 Measure Blood Oxygen Level Single Determination Completed 08/20/2014 99405 Measure Blood Oxygen Level Single Determination Completed 08/20/2013 61852 Measure Blood Oxygen Level Single Determination Completed 08/06/2013 66928 Measure Blood Oxygen Level Single Determination Completed 02/16/2012 59625 Measure Blood Oxygen Level Single Determination Completed 09/20/2011 57766 Omt 3-4 Body Regions Completed 11/10/2010 31121 Excise Benign Lesion .6-1CM Trunk/Arm/Leg Completed 11/10/2010 16409 Remove Skin Tags Up To 15 Completed 11/03/2010 45659 Colonoscopy Flexible Diagnostic Completed 10/13/2010 60767 Electrocardiogram Complete Completed 10/13/2010 07627 Screening Hearing Test Completed Encounters Type Date Location Provider Dx Diagnosis Office Visit 09/12/2018 10:30a [facility], Elda, R07.89 Other chest pain [employer] I71.2 Thoracic aortic aneurysm, without rupture S62.002A Unsp fracture of navicular bone of LEFT wrist, init Z68.41 Body mass index (BMI) 40.0-44.9, adult Office Visit 06/06/2018 8:15a [facility] Anju, M17.11 Unilateral primary Elda, [employer] osteoarthritis, RIGHT knee Office Visit 05/16/2018 9:00a [facility] Anju, Z00.00 Encntr for general Elda, [employer] adult medical exam w/o abnormal findings I10 Essential (primary) hypertension E78.5 Hyperlipidemia, unspecified M10.9 Gout, unspecified M54.5 Low back pain R37 Sexual dysfunction, unspecified M25.512 Pain in LEFT shoulder N40.1 Benign prostatic hyperplasia with lower urinary tract symp M79.604 Pain in RIGHT leg 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 Z13.89 Encounter for screening for other disorder Z68.41 Body mass index (BMI) 40.0-44.9, adult Office Visit 03/21/2018 10:30a [facility] Anju, J06.9 Acute upper Elda, [employer] respiratory infection, unspecified Office Visit 12/16/2017 1:15p [facility] Anju, Z01.818 Encounter for other Elda, [employer] preprocedural examination M25.512 Pain in LEFT shoulder I10 Essential (primary) hypertension E78.5 Hyperlipidemia, unspecified M10.9 Gout, unspecified N40.0 Benign prostatic hyperplasia without lower urinry tract symp M54.5 Low back pain M79.606 Pain in leg, unspecified R37 Sexual dysfunction, unspecified J30.9 Allergic rhinitis, unspecified Office Visit 11/21/2017 9:30a [facility] Aimee Renericia, M25.512 Pain in LEFT [employer] shoulder M79.602 Pain in LEFT arm Office Visit 11/11/2017 11:00a [facility] Aimee Renericia, I10 Essential ( primary) [employer] hypertension E78.5 Hyperlipidemia, unspecified M10.9 Gout, unspecified N40.0 Benign prostatic hyperplasia without lower urinry tract symp M54.5 Low back pain M79.606 Pain in leg, unspecified R37 Sexual dysfunction, unspecified J30.9 Allergic rhinitis, unspecified Z11.59 Encounter for screening for other viral diseases Z68.41 Body mass index (BMI) 40.0-44.9, adult Office Visit 05/10/2017 9:00a [facility] Elda Rene, Z00.00 Encntr for general [employer] adult medical exam w/o abnormal findings I10 Essential (primary) hypertension E78.5 Hyperlipidemia, unspecified M10.9 Gout, unspecified N40.0 Benign prostatic hyperplasia without lower urinry tract symp M54.5 Low back pain M79.606 Pain in leg, unspecified Z23 Encounter for immunization R37 Sexual dysfunction, unspecified J30.9 Allergic rhinitis, unspecified Z68.41 Body mass index (BMI) 40.0-44.9, adult Office Visit 04/04/2017 10:30a [facility] Elda Rene, [employer] H92.01 Otalgia , RIGHT ear H61.23 Impacted cerumen, bilateral Office Visit 02/16/2017 8:00a [facility] Elda Rene, M54.5 Low back pain [employer] Office Visit 12/15/2016 8:45a [facility] Danya Nino MD J01.90 Acute sinusitis, unspecified R07.2 Precordial pain Office Visit 2016 8:45a [facility] Ngozi Barragan PA I10 Essential ( primary) hypertension R42 Dizziness and giddiness Office Visit 10/14/2016 8:30a [facility] Ngozi Barragan, E78.5 Hyperlipidemia , PA unspecified I10 Essential (primary) hypertension M10.9 Gout, unspecified Z68.39 Body mass index (BMI) 39.0-39.9, adult N40.0 Benign prostatic hyperplasia without lower urinry tract symp Office Visit 05/06/2016 8:30a [facility] Ngozi Barragan PA Z23 Encounter for immunization Z00.00 Encntr for general adult medical exam w/o abnormal findings I10 Essential (primary) hypertension E78.5 Hyperlipidemia, unspecified M10.9 Gout, unspecified H61.23 Impacted cerumen, bilateral M79.606 Pain in leg, unspecified Office Visit 03/30/2016 8:30a [facility] Ngozi Barragan PA I10 Essential ( primary) hypertension E78.5 Hyperlipidemia, unspecified M79.606 Pain in leg, unspecified M10.9 Gout, unspecified Office Visit 01/27/2016 10:00a [facility] Ngozi Barragan PA I10 Essential ( primary) hypertension E78.5 Hyperlipidemia, unspecified M10.9 Gout, unspecified Office Visit 12/30/2015 9:45a [facility] Ngozi Barragan PA J06.9 Acute upper respiratory infection, unspecified M10.9 Gout, unspecified Office Visit 11/06/2015 8:30a [facility] Drew Osuna DO M48.06 Spinal stenosis, lumbar region I10 Essential (primary) hypertension E78.5 Hyperlipidemia, unspecified M54.2 Cervicalgia E66.09 Other obesity due to excess calories Z12.11 Encounter for screening for malignant neoplasm of colon N40.1 Enlarged prostate with lower urinary tract symptoms N20.1 Calculus of ureter Z12.5 Encounter for screening for malignant neoplasm of prostate M10.9 Gout, unspecified Office Visit 09/26/2015 11:00a [facility] Ngozi Barragan M79.671 Pain in RIGHT foot PA Office Visit 09/05/2015 1:00p [facility] Drew Osuna DO Z01.810 Encounter for preprocedural cardiovascular examination M48.06 Spinal stenosis, lumbar region I10 Essential (primary) hypertension E78.5 Hyperlipidemia, unspecified Z12.11 Encounter for screening for malignant neoplasm of colon M54.2 Cervicalgia E66.09 Other obesity due to excess calories Office Visit 08/25/2015 3:00p [facility] Drew Osuna DO J20.9 Acute bronchitis, unspecified Office Visit 08/08/2015 9:00a [facility] Drew Osuna DO Z00.00 Encntr for general adult medical exam w/o abnormal findings M48.06 Spinal stenosis, lumbar region H61.23 Impacted cerumen, bilateral I10 Essential (primary) hypertension E78.5 Hyperlipidemia, unspecified Z12.11 Encounter for screening for malignant neoplasm of colon M54.2 Cervicalgia E66.09 Other obesity due to excess calories Office Visit 07/29/2015 9:30a [facility] Ngozi Barragan PA M48.06 Spinal stenosis, lumbar region Office Visit 06/26/2015 9:30a [facility] Ngozi Barragan PA 724.02 Spinal Stenosis Lumbar Region 724.3 Sciatica Office Visit 06/12/2015 9:45a [facility] Ngozi Barragan PA 726.19 Shoulder Disorders Other Spec 786.50 Pain Chest Unspec Office Visit 04/16/2015 9:45a [facility] Ngozi Barragan PA 724.02 Spinal Stenosis Lumbar Region Office Visit 03/31/2015 9:45a [facility] Ngozi Barragan PA 724.3 Sciatica Office Visit 01/23/2015 8:15a [facility] Drew Osuna DO 724.3 Sciatica V76.51 Special Screening For Malignant Neoplasms Colon 401.1 Hypertension Benign 272.4 Hyperlipidemia Other Unspec 784.91 Postnasal Drip 723.1 Cervicalgia 278.00 Obesity Unspec Plan of Treatment Future Appointment(s):05/09/2019 8:35 am - Schedule, Laboratory at [facility]2019 1:15 pm - Elda Rene NP at [facility]05/18/2019 8:30 am - Elda Rene NP at [facility]11/21/2018 - Elda Rene NPZ00.00 Encounter for general adult medical examination without abnoComments:Depression screen:upon review of signs and symptoms with exam assessment pt appears stableFunctionalcapacity and daily living skills: upon review of signs and symptoms through direct questioning, pt appears stable and adequately safe to continue in her current living situation.Screening for colon cancer: due nnual flu vax. recommended. Encouraged healthy dietEncouraged daily exercise 30 - 60 min daily/ or 150,min per week. Encouraged at least 2 qrts water per day with more for sweaty exercise. [employer] 7-8 hours of sleep at night. Recommend under 1 alcoholic drink per day and avoid smoking.Follow up:1 yr. for routine follow up and MWE, sooner PRN for illness or [id number] Essential (primary) hypertensionNew Labs:Basic (BMP), Scheduled: Comments:Continue Lisinopril.Continue to avoid excess sodium. Continue to attempt to increase daily exercise.Follow up:As scheduled in April for routine f/ u only, no MWE, fasting labs 1 week klxydK69.5 Hyperlipidemia, unspecifiedComments:Continue to limit fat and cholesterol in diet Will consider restarting Atorvastatin on less frequent basis for increase in LDL [id number] Thoracic aortic aneurysm, without ruptureComments:Scheduled for follow up CT angio in FebruaryM17.11 Unilateral primary osteoarthritis, RIGHT kneeComments:Continue moist heat and rest for comfort.Continue Aleve as needed, may supplement with Tylenol but ibuprofen.Will refer for further evaluation when he's zfbwrR87.9 Gout, unspecifiedComments:Continue as needed Colchicine and daily LmpeafohjtiS06.5 Low back painComments:Continue chiropractic tx and as needed Naproxen and Cyclobenzaprine.R37 Sexual dysfunction, unspecifiedComments:Continue current use of YpfhyhsdyzA71.512 Pain in LEFT shoulderComments:Will refer back to Dr. Zamarripa Naproxen as needed, take with foodReferral:Jesusita Chase,N40.1 Benign prostatic hyperplasia with lower urinary tract symptoComments:Continue MyrbetriqContinue care with Dr. Monet35.02 Benign neoplasm of LEFT adrenal glandNew Xrays:Ultrasound L adrenal , Scheduled: 01/29/19Comments:Will check US of L mjvqpqxL83.31 Encounter for screening for arqnxzauoaF47.5 Encounter for screening for malignant neoplasm of prostateNew Labs:PSA, Scheduled: 05/09/19Z68.41 Body mass index (BMI) 40.0-44.9 , adultComments:Encouraged healthy well balanced diet with portion control.
--- OUTSIDE RECORDS SUMMARY | 2018-12-16 08:36 | XMS REPORT | Continuity of Care Document ---
:1950 External Reference #:[id number] Author Name Raya Alcantara Care Team Providers Name Role Phone Digiovanna, Elda, BAR WELDER Primary Care Physician Unavailable Payers Type Date Identification Numbers Payment Provider Subscriber Policy Number: [id number] [employer] Number: [id number] PayID: [id number] [place] [address] Advance Directives Description No Information Available Problems Date Description Provider Status Onset: 05/10/2017 Pain in limb Digiovanna, Elda, Active BAR WELDER Onset: 05/10/2017 Low back pain Digiovanna, Elda, Active BAR WELDER Onset: 05/10/2017 Benign prostatic hypertrophy without Digiovanna, Elda, Active outflow obstruction BAR WELDER Onset: 05/10/2017 Gout Digiovanna, Elda, Active BAR WELDER Onset: 01/21/2015 Pure hypercholesterolemia Active Onset: 01/17/2013 [...] MD Active Family History Date Family Member(s) Problem(s) Comments General Heart Disease General Hypertension General Hypercholesterolemia Father Heart Disease Father Hypertension Mother Hypertension Mother Heart Disease First Sister Heart Disease First Sister Hypercholesterolemia Social History Type Date Description Comments Sex Unknown Marital Status Lives With Spouse Occupation Retired Tobacco Use Start: Unknown Never Smoked Cigarettes Smoking Status Reviewed: 11/23/18 Never Smoked Cigarettes ETOH Use Occasionally consumes alcohol Tobacco Use Start: Unknown Patient has never smoked Recreational Drug Use Denies Drug Use Exercise Type/Frequency Exercises regularly Allergies, Adverse Reactions, Alerts Description No Known Drug Allergies Medications Medication Date Status Form Strength Qnty SIG Indications Ordering Provider Sildenafil 11/11 Active Tablets 100mg 6tabs 1/2-1 by R37 Digiovann Citrate mouth as a, needed Elda, BAR WELDER Lisinopril 10/14 Active Tablets 20mg 90tab 1 by mouth I10 Digiovann s every day a, Elda, BAR WELDER Allopurinol 03/30 Active Tablets 300mg 90tab 1 by mouth M10.9 Digiovann s daily a, Elda, BAR WELDER Colcrys 09/26 Active Tablets 0.6mg 30tab 1 by mouth M79.671 Digiovann s twice a day a, until pain Elda, resolves or BAR WELDER if develops diarrhea, then 1 by mouth daily for additional 5 days Ibuprofen 200 00/00 Active Tablets 200mg 400-600mg Unknown / every 6 hours as needed for pain. Ambien 01/10 Hx Tablets 5mg 10tab take one by nezenaida s mouth Yaseen, - before bed 06/05 [...] Hx Tablets 500mg 180ta take one M54.5 bs tablet by a, - mouth twice Elda, 10/31 a day for 2 weeks then as needed with food Cyclobenzaprine 02/16 Hx Tablets 10mg 30tab take 1 M54.5 Digiovann HCL /2016 s tablet by a, - mouth every Elda, 10/31 8 hours as needed for pain Atorvastatin 10/14 Hx Tablets 10mg 90tab 1 by mouth E78.5 Digiovann Calcium /2015 s three times a, - a week [...] Available Vital Signs Date Vital Result Comment 11/23/2018 1:59pm Height 66 inches 5'6" Weight [...] Result H/L Range Note Basic Metabolic 12/06/2017 [facility] Sodium 136 mmol/L N 133- [address] [place] [address] [phone] Potassium 4.4 mmol/L N 3.5-5.0 Chloride 102 mmol/L N 101-111 Co2 Carbon Dioxide 28 mmol/L N 22-32 Anion Gap 6 mmol/L N 2-11 Glucose 89 mg/dL N 70-100 Blood Urea Nitrogen 17 mg/dL N 6-24 Creatinine 1.06 mg/dL N 0.67-1.17 BUN/Creatinine Ratio 16.0 N 8-20 Calcium 9.2 mg/dL N 8.6-10.3 Egfr Non- 69.5 >60 Egfr 89.4 >60 1 CBC Auto Diff 12/06/2017 [facility] White Blood 9.5 10^3/uL N 3.5-10.[address] [facility] [place] [address] [phone] Red Blood Count 5.22 10^6/uL N 4.0-5.4 [...] dialysis) Procedures Date Code Description Status 06/08/2018 83226 Inject/Drain Joint/Bursa Major W/O US Completed 12/26/2017 11276 Arthroscopy Biceps Tenodesis Completed 12/26/2017 61708 Arthroscopy Biceps Tenodesis Completed 12/26/2017 07199 Arthroscopy Shoulder,W/Rotator Cuff Repair Completed 12/26/2017 36979 Arthroscopy Shoulder,W/Rotator Cuff Repair Completed 12/26/2017 60688 Arthroscopy,Shoulder Decompression Of Subacromial Space Completed W/Acromio 12/26/2017 44720 Arthroscopy,Shoulder Decompression Of Subacromial Space Completed W/Acromio 12/26/2017 15913 Arthroscopy Shoulder Debridement Extensive Completed 12/26/2017 22216 Arthroscopy Shoulder Debridement Extensive Completed 11/25/201762874 Inject/Drain Joint/Bursa Major W/O US Completed Encounters Type Date Location Provider Dx Diagnosis Office Visit 07/25/2018 Orthopedic Jesusita Chase MD S46.012A Strain of 8:00a [facility] 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, right AT [place] knee S82.101D Unsp fx upper end of [...] Henrik Coronado M75.122 Complete [facility] MD rotatr-cuff AT [place] tear/ruptr of left shoulder, not trauma Office Visit 11/25/2017 10:15a Orthopedic Henrik Coronado S43.422A Sprain of left [facility] MD rotator cuff AT [facility], initial encounter W11.xxxA Fall on and from ladder, initial encounter Plan of Treatment 11/23/2018 - Jesusita Chase, MDS46.012A Strain of muscle(s) and tendon(s) of the rotator cuff of Radha Xrays:MRI Shoulder Left W/O, Ordered: 11/23/18Shoulder Left 2+ VWS, Ordered: 11/23/18Follow up:Follow up: after MRIM75.22 Bicipital tendinitis, left shoulder
[2018-12-16 08:45] VITALS: BP 133/77
--- NOTE | 2018-12-16 09:01 | UC ---
Respiratory Complaint HPI - HPI Summary HPI Summary: 2 day history of sinus pressure, congestion and cough with mild chest tightness. He has not used albuterol although he has an inhalant at home. In the past, steroids have helped with his breathing. Mild headache, poor sleep secondary to congestion. - History of Current Complaint Chief Complaint: UCRespiratory Stated Complaint: COUGH, CONGESTION Time Seen by Provider: 12/16/18 08:50 Hx Obtained From: Patient Onset/Duration: Gradual Onset, Lasting Days - 3 Timing: Constant Severity Initially: Mild Severity Currently: Moderate Pain Intensity: 0 Character: Cough: Nonproductive Aggravating Factors: Exertion, Recumbent Position Alleviating Factors: Upright Position Associated Signs And Symptoms: Positive: Dyspnea, URI, Nasal Congestion, Sinus Discomfort - Allergies/Home Medications Allergies/Adverse Reactions: Allergies Allergy/AdvReac Type Severity Reaction Status Date / Time No Known Allergies Allergy Verified 12/16/18 08:45 PMH/Surg Hx/FS Hx/Imm Hx - Additional Past Medical History Additional PMH: obesity Cardiovascular History: Hypertension - Surgical History Surgical History: Yes Surgery Procedure, Year, and Place: 09/09/2016 Sciatic nerve back surgery at [facility] 1978 RT LOWER LEG PUT BACK IN PLACE BUT NO METAL. left shouldler rotator cuff 12/2017 - Family History Known Family History: Positive: Non-Contributory - Social History Occupation: Retired - holder Lives: With Family Alcohol Use: Rare Alcohol Amount: 3-4 DRINKS/YR Substance Use Type: None Smoking Status (MU): Never Smoked Tobacco Have You Smoked in the Last Year: No Household Exposure Type: Cigarettes Review of Systems All Other Systems Reviewed And Are Negative: Yes Constitutional: Positive: Fatigue ENT: Positive: Sinus Congestion Respiratory: Positive: Cough, Other - has been referred for sleep study in the past but did not complete the test. Neurological: Positive: Headache Is Patient Immunocompromised?: No Physical Exam Triage Information Reviewed: Yes Appearance: Ill-Appearing - looks mildly unwell., Obese Vital Signs: Initial Vital Signs Temp 97.5 F 12/16/18 08:39 Pulse 72 12/16/18 08:39 Resp 18 12/16/18 08:39 BP 133/77 12/16/18 08:39 Pulse Ox 99 12/16/18 08:39 Eyes: Positive: Conjunctiva Clear ENT: Positive: Pharynx normal, Other - grade 3 airway Neck: Positive: Supple, Nontender, No Lymphadenopathy Respiratory: Positive: Lungs clear, Normal breath sounds Cardiovascular: Positive: RRR, No Murmur Musculoskeletal Exam: Normal Neurological Exam: Normal Neurological: Positive: Alert, Muscle Tone Normal Psychological Exam: Normal Skin Exam: Normal UC Diagnostic Evaluation - Laboratory O2 Sat by Pulse Oximetry: 99 Respiratory Course/Dx - Course Course Of Treatment: antibiotic and steroid for treatment of sinusitis. - Differential Dx/Diagnosis Differential Diagnosis/HQI/PQRI: Asthma, Laryngitis, Sinusitis Provider Diagnosis: Sinusitis Discharge - Sign-Out/Discharge Documenting (check all that apply): Patient Departure All imaging exams completed and their final reports reviewed: No Studies - Discharge Plan Condition: Stable Disposition: HOME Prescriptions: Amoxicillin/Clavulanate TAB* [Augmentin TAB 875*] 875 mg PO BID #14 tab predniSONE [Deltasone 20 MG TAB] 2 tab PO DAILY #10 tablet Patient Education Materials: Sinusitis (ED) Referrals: Elda Rene [Primary Care Provider] - Additional Instructions: You have been prescribed an antibiotic and steroid for treatment of sinusitis and drainage, which is triggering your cough. You can use albuterol, but you are not actively wheezing, so it might not help all that much. Ensure that you take the prednisone on a full stomach. Follow up if you have worsening shortness of breath. - Billing Disposition and Condition Condition: STABLE Disposition: Home
== END 2018-12-16 09:17 | disposition home or self-care (01) ==
LOC: UCCORT 08:26
DX: J32.9 Chronic sinusitis, unspecified (principal); I10 Essential (primary) hypertension; R06.00 Dyspnea, unspecified; Z77.22 Contact with and (suspected) exposure to environmental tobacco smoke (acute) (chronic)
CPT/HCPCS: 99212; G0463

== ENCOUNTER 2019-03-01 08:06 | Emergency (ER) | payer MEDICARE ==
[2019-03-01 08:23] VITALS: BP 141/85
--- NOTE | 2019-03-01 08:56 | UC ---
General HPI - HPI Summary HPI Summary: Patient states he started with mild chest cold on 02/24 who presents with worsening chest cold symptoms. Was at a on 02/24 out in the cold snow and states his chest cold got much worse. States he had to sleep in the chair last night due to all the drainage. Which did help. Yesterday symptoms got dramatically worse. NO SOB. Pleuritic pain with coughing. +congestion. Dry cough, occasional sputum. No documented fevers. No N/V/D. Good PO. Meds: reviewed - History of Current Complaint Chief Complaint: UCGeneralIllness Stated Complaint: COUGH,CONGESTION Time Seen by Provider: 03/01/19 08:45 Pain Intensity: 0 - Allergy/Home Medications Allergies/Adverse Reactions: Allergies Allergy/AdvReac Type Severity Reaction Status Date / Time No Known Allergies Allergy Verified 03/01/19 08:22 PMH/Surg Hx/FS Hx/Imm Hx Previously Healthy: Yes Cardiovascular History: Hypertension Respiratory History: Other - RAD - Surgical History Surgical History: Yes Surgery Procedure, Year, and Place: 09/09/2016 Sci[facility] nerve back surgery at [facility] 1978 RT LOWER LEG PUT BACK IN PLACE BUT NO METAL. left shouldler rotator cuff 12/2017 - Family History Known Family History: Positive: Non-Contributory - Social History Alcohol Use: Rare Alcohol Amount: 3-4 DRINKS/YR Substance Use Type: None Smoking Status (MU): Never Smoked Tobacco Have You Smoked in the Last Year: No Household Exposure Type: Cigarettes Review of Systems All Other Systems Reviewed And Are Negative: Yes ENT: Positive: Nasal Discharge, Sinus Congestion Respiratory: Positive: Cough Physical Exam Triage Information Reviewed: Yes Appearance: Well-Appearing Vital Signs: Initial Vital Signs Temp 97.5 F 03/01/19 08:16 Pulse 71 03/01/19 08:16 Resp 18 03/01/19 08:16 BP 141/85 03/01/19 08:16 Pulse Ox 98 03/01/19 08:16 ENT: Positive: Pharyngeal erythema, Nasal congestion, Other - TMs b/l dull no erythema or bulging Neck: Positive: Supple, Nontender Respiratory: Positive: Other: - diminished breath sounds at the bases. No W/R/ R. No increase in work of breathing Cardiovascular: Positive: RRR, Other: - soft systolic murmur Diagnostics - Radiology CXR Radiology Interpretation Completed By: Radiologist Summary of Radiographic Findings: NO acute finding Course/Dx - Course Course Of Treatment: This is a 68 yr old with RAD - asking for steroids, presenting with worsening cough CXR: Negative No respiratory distress Plan Continue to use your ALbuterol inhaler as prescribed Prednisone 40 mg PO QD x 4 days Zpack as prescribed Continue to drink plenty of fluids Recommend a decongestant like sudafed for congestion If symptoms persist or worsen, follow up with your PCP or return to urgent care or the ER - Diagnoses Provider Diagnosis: Reactive airway disease, Bronchitis Discharge - Sign-Out/Discharge Documenting (check all that apply): Patient Departure All imaging exams completed and their final reports reviewed: Yes - Discharge Plan Condition: Fair Disposition: HOME Patient Education Materials: Acute Bronchitis (ED), Reactive Airways Disease ( ED) Referrals: Elad Rene [Primary Care Provider] - Additional Instructions: Continue to use your ALbuterol inhaler as prescribed Prednisone 40 mg PO QD x 4 days Zpack as prescribed Continue to drink plenty of fluids Recommend a decongestant like sudafed for congestion If symptoms persist or worsen, follow up with your PCP or return to urgent care or the ER - Billing Disposition and Condition Condition: FAIR Disposition: Home
== END 2019-03-01 09:28 | disposition home or self-care (01) ==
LOC: UCCORT 08:06
DX: J45.909 Unspecified asthma, uncomplicated (principal); R05 Cough; R09.89 Other specified symptoms and signs involving the circulatory and respiratory systems; I10 Essential (primary) hypertension
CPT/HCPCS: 71046; 99212; G0463

== ENCOUNTER 2019-09-29 08:06 | Emergency (ER) | payer MEDICARE ==
--- NOTE | 2019-09-29 08:21 | UC ---
Respiratory Complaint HPI - HPI Summary HPI Summary: 68 y/o male presents to the urgent care c/o nasal congestion w/ yellowish nasal discharge, PND and productive cough for the past 4 days. Yesterday he developed mild wheezing. He took a Prednisone tab 10mg and albuterol Tx he had from a left over from previous treatment and he felt better. His was recently Dx w/ Pneumonia. He has never smoked, but his has been a smoker for 30 years. Pt also feels mild REINA, chills, body aches and when he cough he feels b/l rib pain. He denies fever, SOB, chest pain, abdominal pain, N/V/D. - History of Current Complaint Stated Complaint: THROAT,COUGH Time Seen by Provider: 09/29/19 08:17 Hx Obtained From: Patient Onset/Duration: Gradual Onset, Lasting Days - 4 days of productive cough, Still Present, Worse Since - 1 day w/ wheezing Timing: Intermittent Episodes Severity Initially: Mild Severity Currently: Moderate Pain Intensity: 6 - sore throat Pain Scale Used: 0-10 Numeric Character: Cough: Productive, Sputum Description: - yellowish Aggravating Factors: Recumbent Position Alleviating Factors: OTC Meds - he alos took prednisone PO 10mg he had left yesterday and felt better Associated Signs And Symptoms: Positive: Chills, Wheezing, URI, Nasal Congestion. Negative: Fever, Dizziness, Hoarseness - Risk Factors Pulmonary Embolism Risk Factors: Negative Cardiac Risk Factors: Hypertension Pseudomonas Risk Factors: Negative Tuberculosis Risk Factors: Negative - Allergies/Home Medications Allergies/Adverse Reactions: Allergies Allergy/AdvReac Type Severity Reaction Status Date / Time No Known Allergies Allergy Verified 09/29/19 08:26 PMH/Surg Hx/FS Hx/Imm Hx Previously Healthy: Yes Endocrine History: Dyslipidemia - diet control Cardiovascular History: Hypertension - Surgical History Surgical History: Yes Surgery Procedure, Year, and Place: 09/09/2016 Sciatic nerve back surgery at [facility]. 1978 RT LOWER LEG PUT BACK IN PLACE BUT NO METAL. left shouldler rotator cuff 12/2017 - Family History Known Family History: Positive: Cardiac Disease, Hypertension, Diabetes, Non- Contributory - Social History Occupation: Retired Lives: With Family Alcohol Use: Rare Alcohol Amount: 3-4 DRINKS/YR Substance Use Type: None Smoking Status (MU): Never Smoked Tobacco - however smoker for 30 years Have You Smoked in the Last Year: No Household Exposure Type: Cigarettes Review of Systems All Other Systems Reviewed And Are Negative: Yes Constitutional: Positive: Chills, Fatigue, Other - body aches Skin: Positive: Negative Eyes: Positive: Negative ENT: Positive: Sore Throat, Nasal Discharge - yellowish, Sinus Congestion, Other - moderate yellowish pND Respiratory: Positive: Cough - productive, Other - mild wheezing Cardiovascular: Positive: Negative Gastrointestinal: Positive: Negative Genitourinary: Positive: Negative Motor: Positive: Negative Neurovascular: Positive: Negative Musculoskeletal: Positive: Myalgia Neurological: Positive: Headache - mild Psychological: Positive: Negative Is Patient Immunocompromised?: No Physical Exam - Summary Physical Exam Summary: Vital Signs Reviewed: Yes General: well developed, well nourished obese male sitting in the examining table w/o any apparent distress Eyes: Positive: Conjunctiva Clear - PERRLA, EOMI, fundi grossly normal ENT: Positive: Normal ENT inspection, Hearing grossly normal, Pharynx normal, Nasal congestion - edematous and erythematous nasal mucosa, Nasal drainage - yellowish drainage, TMs normal. Negative: Tonsillar swelling, Tonsillar exudate Neck: Positive: Supple, Nontender, No Lymphadenopathy Respiratory: no orthopnea or dyspnea. Able to speak in full sentences, no retractions or accessory muscle use, no tripod position, stridor, or head bobbing. Positive breath sounds bilaterally. diffuse scattered wheezing and rhonchi on b/L lungs, no crackles or rales. Cardiovascular: Positive: RRR, No Murmur, Pulses Normal, Brisk Capillary Refill Abdomen Description: Positive: Nontender, No Organomegaly, Soft. Negative: CVA Tenderness (R), CVA Tenderness (L) Bowel Sounds: Positive: Present Musculoskeletal Exam: Normal Musculoskeletal: Positive: Strength Intact, ROM Intact, No Edema Neurological Exam: Normal Psychological Exam: Normal Skin Exam: Normal Triage Information Reviewed: Yes Respiratory Course/Dx - Course Course Of Treatment: 68 y/o male presents to the urgent care c/o nasal congestion w/ yellowish nasal discharge, PND and productive cough for the past 4 days. Yesterday he developed mild wheezing. He took a Prednisone tab 10mg and albuterol Tx he had from a left over from previous treatment and he felt better. His was recently Dx w/ Pneumonia. He has never smoked, but his has been a smoker for 30 years. Pt also feels mild REINA, chills, body aches and when he cough he feels b/l rib pain. He denies fever, SOB, chest pain, abdominal pain, N/V/D. Hx obtained. Pt w/ B/L lungs scattered wheezing and rhonchi on examination. O2Sat: 99%. Chest X-ray ordered: impression: no acute disease observed. Pt given at the clinic Prednisone 60 mg PO and Duoneb treatment. Pt tolerated well medications and her lungs improved. Pt states feeling better. Pt will be tx w/ Rx Doxycycline PO , Prednisone taper dose and Duoneb treatments. Pt Strongly advised to f/u with his PCP for further management. He also has elevated BP today, advised to decrease salt in her diet and monitor BP, if it continues to be elevated to f/u with her PCP. Pt understood and agreed with D/C instructions and left the clinic hemodynamically stable. - Differential Dx/Diagnosis Differential Diagnosis/HQI/PQRI: Asthma, Bronchitis, Exacerbation Of COPD, Influenza, Lower Resp Infection, Sinusitis, Other - pneumonia Provider Diagnosis: Bronchitis, Wheezing, Uncontrolled hypertension Discharge ED - Sign-Out/Discharge Documenting (check all that apply): Patient Departure - D/C home All imaging exams completed and their final reports reviewed: Yes - Discharge Plan Condition: Stable Disposition: HOME Prescriptions: Albuterol/Ipratropium NEB.JENS* [Duoneb (Albuterol 2.5 MG/Ipratropium 0.5 MG)] 1 neb INH Q6H PRN #1 neb.jens PRN Reason: Wheezing DOXYcycline CAP(*) [DOXYcycline 100MG CAP(*)] 100 mg PO DAILY #14 cap predniSONE TAB* [Deltasone 20 MG TAB*] 20 mg PO DAILY #8 tab Patient Education Materials: Acute Bronchitis (ED), Wheezing (ED) Referrals: Elda Rene [Primary Care Provider] - Additional Instructions: 1- Take Prednisone PO taper dose as directed starting tomorrow. First loading dose given today. Please take flull course of antibiotic. take yogurts w/ probiotics or culturelle to protect your GI system 2-Use the Duoneb nebulizer treatment to alleviate SOB, and wheezing as directed . Increase fluid intake, rest and eat well. 3- If symptoms do not improve or worsen or your develop SOB with fever and severe wheezing please go immediately to the ER further evaluation and treatment. 4- F/u with your PCP in 3 days for further management on your symptoms, you may be developing COPD 5-Your BP is elevated today. please decrease salt in your diet, monitor BP and if it continues to be elevated please f/u with your PCP for further management. - Billing Disposition and Condition Condition: STABLE Disposition: Home
[2019-09-29 08:25] VITALS: BP 145/88
[2019-09-29] MEDS ORDERED: predniSONE TAB* 20 MG PO ONE (08:42)
[2019-09-29] MEDS ORDERED: Albuterol/Ipratropium NEB.SOL* Albuterol 2.5 MG/Ipratropium 0.5 MG 3 ML INH ONE (08:43)
[2019-09-29 08:58] LABS: Influenza A Molecular NEGATIVE (Negative); Influenza B Molecular NEGATIVE (Negative)
== END 2019-09-29 09:30 | disposition home or self-care (01) ==
LOC: UCCORT 08:06
DX: J40 Bronchitis, not specified as acute or chronic (principal); R06.2 Wheezing; I10 Essential (primary) hypertension; J02.9 Acute pharyngitis, unspecified; J34.89 Other specified disorders of nose and nasal sinuses
CPT/HCPCS: 71046; 99212; A9270-GY; G0463; J7512